=== PATIENT | male | born 1945 | race African-American/Black ===

== ENCOUNTER 2016-11-02 06:10 | Inpatient (IN) | payer MEDICARE, MEDICAID ==
[2016-11-02] VITALS (14 sets, daily range): BP systolic 134–199; BP diastolic 84–125
[~2016-11-02] VITALS: Ht 167.6 cm; Wt 81.8 kg
[~2016-11-02 06:10] MED LIST: AMLO5TAB4 PO; ASPI-1035 PO; CLON0.2T PO; COR12 PO; DOCU-138 PO; FINA5TAB11 PO; ISOS20TA57 PO; LISI-604 PO; METO25TA6 PO; NVLG73 SUBCUT; SIMV20TA2 PO; SITA100T6 PO
[2016-11-02] MEDS ORDERED: LIDOCAINE HCL 1% 20ML VIAL (Pyxis) INJ ONE (07:57)
[2016-11-02] MEDS ORDERED: IODIXANOL 320MG/ML 100 ML BOTTLE IV ONE (07:59)
[2016-11-02] MEDS ORDERED: COR12 PO (08:04)
[2016-11-02] MEDS ORDERED: CLOP75TA33 PO (08:04)
[2016-11-02] MEDS ORDERED: FENTANYL CITRATE/PF 50MCG/ML 2ML VIAL ONE (08:12)
[2016-11-02] MEDS ORDERED: MIDAZOLAM HCL 2 MG/2 ML VIAL ONE ×3 (08:12→09:31)
[2016-11-02] MEDS ORDERED: HYDROMORPHONE HCL/PF 2MG/ML (OR) ONE ×2 (08:12→09:17)
[2016-11-02] MEDS ORDERED: IOVERSOL 240MG/ML 100ML BOTTLE IV ONE (08:54)
[2016-11-02] MEDS ORDERED: ASPIRIN 325MG TABLET ONE (09:44)
[2016-11-02] MEDS ORDERED: CLOPIDOGREL 75MG TABLET ONE (09:44)
[2016-11-02] MEDS ORDERED: INSULIN ASPART SUBCUT SCH (10:00)
[2016-11-02] MEDS ORDERED: AMLODIPINE 5MG TABLET PO SCH (10:00)
[2016-11-02] MEDS ORDERED: SODIUM CHLORIDE 0.45% 1,000 ML IV ONE (10:00)
[2016-11-02] MEDS ORDERED: ACETAMINOPHEN 325MG TABLET PO PRN (10:00)
[2016-11-02] MEDS ORDERED: SIMVASTATIN PO SCH (10:00)
[2016-11-02] MEDS ORDERED: CLONIDINE 0.2MG TABLET PO PRN (10:00)
[2016-11-02] MEDS ORDERED: MEDICATION NOT ON FORMULARY EA (Sitagliptin Phosphate (Januvia) 1 TAB) PO SCH (10:00)
[2016-11-02] MEDS ORDERED: ATROPINE SULFATE 1MG/10ML SYR IV PRN (10:00)
[2016-11-02] MEDS: DOCUSATE SODIUM 100MG CAPSULE PO SCH (10:59)
[2016-11-02] MEDS: LISINOPRIL 20MG TABLET PO SCH (11:01)
[2016-11-02] MEDS: ATORVASTATIN CALCIUM 10MG TABLET PO SCH (12:18)
[2016-11-02] MEDS: ISOSORBIDE MONONITRATE 60MG TABLET SR 24HR PO SCH (12:19)
[2016-11-02] MEDS: LINAGLIPTIN 5MG TABLET PO SCH (12:19)
[2016-11-02] MEDS: INS NPH/REG HM 70-30 100 UNITS/ML 10ML VIAL (HUMULIN 70-30) SUBCUT SCH ×2 (13:11→20:14)
[2016-11-02] MEDS ORDERED: CLONIDINE 0.2MG TABLET PO SCH (13:30)
[2016-11-02] MEDS ORDERED: HEPARIN SODIUM 1,000 UNIT/1ML VIAL IV ONE (13:42)
[2016-11-02] MEDS ORDERED: LORAZEPAM 2MG/ML CPJ IV NR ×2 (13:45→14:45)
[2016-11-02] MEDS: CLONIDINE 0.2MG TABLET PO SCH ×2 (13:50→20:05)
[2016-11-02] MEDS: QUETIAPINE FUMARATE 25MG TABLET PO SCH (14:11)
[2016-11-02] MEDS: HYDRALAZINE 20MG/ML VIAL IV PRN (15:15)
[2016-11-02] MEDS ORDERED: LORAZEPAM 2MG/ML CPJ IV PRN (15:30)
[2016-11-02] MEDS ORDERED: ONDANSETRON HCL 4MG/2ML VIAL IV PRN (16:15)
[2016-11-02] MEDS ORDERED: CARVEDILOL 12.5MG TABLET PO SCH (17:00)
[2016-11-02] MEDS: CARVEDILOL 12.5MG TABLET PO SCH (18:08)
[2016-11-02] MEDS: AMLODIPINE 5MG TABLET PO SCH (21:55)
[2016-11-03] VITALS (8 sets, daily range): BP systolic 146–180; BP diastolic 88–97
[2016-11-03 06:18] LABS: BASOPHILS % 0.3 % (0.0-2.0); EOSINOPHILS % 0.5 % (0.0-5.0); HEMATOCRIT. 40.7 % (42.0-52.0); HEMOGLOBIN. 13.9 g/dL (14.0-18.0); LYMPHOCYTES % 12.7 % (20.0-50.0); MEAN CORPUSCULAR HEMOGLOBIN 31.6 pg (28.0-32.0); MEAN CORPUSCULAR HGB CONC 34.1 g/dL (31.0-37.0); MEAN CORPUSCULAR VOLUME 92.6 fL (80.0-94.0); MEAN PLATELET VOLUME 9.4 fl (7.4-10.4); MONOCYTES % 7.7 % (2.0-8.0); NEUTROPHILS % 78.8 % (40.0-76.0); PLATELET 207 x1000/uL (130-400); RED BLOOD CELL COUNT 4.39 mill/uL (4.7-6.1); RED CELL DISTRIBUTION WIDTH 14.1 % (11.6-14.6); WHITE BLOOD COUNT 13.1 x1000/uL (4.5-11.0)
[2016-11-03 07:21] LABS: CALCIUM 8.7 mg/dL (8.5-10.1)
[2016-11-03] MEDS: INS NPH/REG HM 70-30 100 UNITS/ML 10ML VIAL (HUMULIN 70-30) SUBCUT SCH (07:50)
[2016-11-03] MEDS: DOCUSATE SODIUM 100MG CAPSULE PO SCH (08:00)
[2016-11-03] MEDS: QUETIAPINE FUMARATE 25MG TABLET PO SCH (08:01)
[2016-11-03] MEDS: LINAGLIPTIN 5MG TABLET PO SCH (08:01)
[2016-11-03] MEDS: ISOSORBIDE MONONITRATE 60MG TABLET SR 24HR PO SCH (08:02)
[2016-11-03] MEDS: CARVEDILOL 12.5MG TABLET PO SCH (08:03)
[2016-11-03] MEDS: CLONIDINE 0.2MG TABLET PO SCH (08:05)
[2016-11-03] MEDS ORDERED: CLOPIDOGREL 75MG TABLET PO SCH (09:00)
[2016-11-03] MEDS ORDERED: ASPIRIN 81MG EC TABLET PO SCH (09:00)
[2016-11-03] MEDS: ATORVASTATIN CALCIUM 10MG TABLET PO SCH (09:13)
[2016-11-03] MEDS: AMLODIPINE 5MG TABLET PO SCH (09:14)
[2016-11-03] MEDS: LISINOPRIL 20MG TABLET PO SCH (09:14)
[2016-11-03] MEDS: HYDRALAZINE 20MG/ML VIAL IV PRN (09:33)
[2016-11-03] MEDS ORDERED: POTASSIUM CHLORIDE 20MEQ TABLET SR PO NR (10:30)
== END 2016-11-03 12:20 | disposition home or self-care (01) | DRG 253 ==
LOC: CCL 06:10 → 3WST 06:11
PROVIDERS: ADMIT Specialist; ATTEND Specialist
PROC: 047L341 Dilation of Left Femoral Artery with Drug-eluting Intraluminal Device, using Drug-Coated Balloon, Percutaneous Approach (ICD-10-PCS; principal; 2016-11-02)
PROC: 047K34Z Dilation of Right Femoral Artery with Drug-eluting Intraluminal Device, Percutaneous Approach (ICD-10-PCS; 2016-11-02)
PROC: 047M34Z Dilation of Right Popliteal Artery with Drug-eluting Intraluminal Device, Percutaneous Approach (ICD-10-PCS; 2016-11-02)
DX: E11.51 Type 2 diabetes mellitus with diabetic peripheral angiopathy without gangrene (principal); I70.92 Chronic total occlusion of artery of the extremities; I70.202 Unspecified atherosclerosis of native arteries of extremities, left leg; D63.8 Anemia in other chronic diseases classified elsewhere; E78.5 Hyperlipidemia, unspecified; I13.10 Hypertensive heart and chronic kidney disease without heart failure, with stage 1 through stage 4 chronic kidney disease, or unspecified chronic kidney disease; E87.6 Hypokalemia; I11.9 Hypertensive heart disease without heart failure; I25.10 Atherosclerotic heart disease of native coronary artery without angina pectoris; E11.22 Type 2 diabetes mellitus with diabetic chronic kidney disease; N18.9 Chronic kidney disease, unspecified; N28.9 Disorder of kidney and ureter, unspecified; Z79.4 Long term (current) use of insulin; Z95.1 Presence of aortocoronary bypass graft; Z98.890 Other specified postprocedural states
CPT/HCPCS: 36415; 37226; 75710; 80048; 82962; 85025; 85347; C1714; C1725; C1760; C1769; C1887; C1893; C1894; J0360; J1170; J1644; J1815; J2060; J2250; J2405; J3010; J3490; Q9967

== ENCOUNTER 2017-03-08 14:28 | Emergency (ER) | payer MEDICARE, MEDICAID ==
[~2017-03-08] VITALS: Ht 167.6 cm; Wt 83.0 kg
[~2017-03-08 14:28] MED LIST changes: -ASPI-1035 PO; +ASPI-1159 PO; +CLOP75TA33 PO
[2017-03-08 15:30] LABS: BASOPHILS % 0.6 % (0.0-2.0); EOSINOPHILS % 1.4 % (0.0-5.0); HEMATOCRIT. 35.5 % (42.0-52.0); HEMOGLOBIN. 12.2 g/dL (14.0-18.0); LYMPHOCYTES % 22.7 % (20.0-50.0); MEAN CORPUSCULAR HEMOGLOBIN 31.8 pg (28.0-32.0); MEAN CORPUSCULAR VOLUME 92.8 fL (80.0-94.0); MEAN PLATELET VOLUME 8.8 fl (7.4-10.4); MONOCYTES % 6.8 % (2.0-8.0); NEUTROPHILS % 68.5 % (40.0-76.0); PLATELET 191 x1000/uL (130-400); RED BLOOD CELL COUNT 3.83 mill/uL (4.7-6.1); RED CELL DISTRIBUTION WIDTH 14.4 % (11.6-14.6)
[2017-03-08 15:38] LABS: PROTHROMBIN TIME 10.7 sec
[2017-03-08 15:43] LABS: CARBON DIOXIDE 29 mEq/L (21-32); CHLORIDE 107 mEq/L (98-107)
[2017-03-08 15:47] LABS: TROPONIN I < 0.02 ng/mL (0.00-0.04)
[2017-03-08 16:55] LABS: CLARITY URINE CLEAR (CLEAR); COLOR URINE YELLOW (YELLOW); GLUCOSE URINE NEGATIVE (NEGATIVE); KETONES URINE NEGATIVE (NEGATIVE); LEUKOCYTE ESTERASE URINE NEGATIVE (NEGATIVE); NITRITE URINE NEGATIVE (NEGATIVE); OCCULT BLOOD URINE 1+ (NEGATIVE); PROTEIN URINE 3+ (NEGATIVE); SPECIFIC GRAVITY URINE 1.021 (1.005-1.030); UROBILINOGEN URINE 0.2 E.U./dL (0.2-1.0)
[2017-03-08] MEDS ORDERED: SODIUM CHLORIDE 0.9% 500 ML IV NR (17:05)
[2017-03-08 18:39] VITALS: BP 161/85
== END 2017-03-08 18:45 | disposition home or self-care (01) ==
LOC: ER 15:45
DX: E11.649 Type 2 diabetes mellitus with hypoglycemia without coma (principal); R31.29 Other microscopic hematuria; F41.9 Anxiety disorder, unspecified; I10 Essential (primary) hypertension; Z87.891 Personal history of nicotine dependence; E78.00 Pure hypercholesterolemia, unspecified; Z79.82 Long term (current) use of aspirin; Z79.4 Long term (current) use of insulin
CPT/HCPCS: 36415; 71010; 80053; 81001; 82962; 83880; 84484; 85025; 85610; 93005; 99285

== ENCOUNTER 2017-04-30 00:09 | Inpatient (IN) | payer MEDICARE, MEDICAID ==
[~2017-04-30] VITALS: Ht 167.6 cm; Wt 77.3 kg
[~2017-04-30 00:09] MED LIST changes: +SITA100T11 PO; -SITA100T6 PO
[2017-04-30] MEDS ORDERED: ONDANSETRON HCL 4MG/2ML VIAL IV ONE (02:15)
[2017-04-30] MEDS ORDERED: MORPHINE SULFATE 4 MG/ML CPJ (NOT FOR IM USE) IV ONE (02:15)
[2017-04-30 02:34] LABS: BASOPHILS % 0.9 % (0.0-2.0); HEMATOCRIT. 31.9 % (42.0-52.0); HEMOGLOBIN. 10.6 g/dL (14.0-18.0); LYMPHOCYTES % 20.9 % (20.0-50.0); MEAN CORPUSCULAR HEMOGLOBIN 31.4 pg (28.0-32.0); MEAN CORPUSCULAR VOLUME 94.2 fL (80.0-94.0); MEAN PLATELET VOLUME 9.6 fl (7.4-10.4); MONOCYTES % 6.2 % (2.0-8.0); PLATELET 209 x1000/uL (130-400); RED BLOOD CELL COUNT 3.38 mill/uL (4.7-6.1); RED CELL DISTRIBUTION WIDTH 14.6 % (11.6-14.6)
[2017-04-30 02:44] LABS: CARBON DIOXIDE 26 mEq/L (21-32); CHLORIDE 108 mEq/L (98-107); TROPONIN I < 0.02 ng/mL (0.00-0.04)
[2017-04-30] MEDS ORDERED: LORAZEPAM 2MG/ML CPJ IV ONE (05:00)
[2017-04-30 09:00] VITALS: BP 158/94
[2017-04-30] MEDS ORDERED: LISI-604 PO (10:24)
[2017-04-30] MEDS ORDERED: GLIP5TAB12 PO (10:24)
[2017-04-30] MEDS ORDERED: CARV25TA47 PO (10:24)
[2017-04-30] MEDS ORDERED: TRAM50TA3 PO (10:24)
[2017-04-30] MEDS ORDERED: SIMV20TA6 PO (10:24)
[2017-04-30] MEDS ORDERED: MINO2.5T19 PO (10:24)
[2017-04-30] MEDS ORDERED: ISOS20TA8 PO (10:24)
[2017-04-30] MEDS ORDERED: LORA1TAB PO (10:24)
[2017-04-30] MEDS ORDERED: ACETAMINOPHEN 325MG TABLET PO PRN (11:00)
[2017-04-30] MEDS ORDERED: FERROUS SULFATE 325MG TABLET PO SCH (11:00)
[2017-04-30] MEDS ORDERED: CLONIDINE 0.1MG TABLET PO PRN (11:00)
[2017-04-30] MEDS ORDERED: HYDROCODONE/ACETAMINOPHEN 5/325MG TABLET PO PRN (11:00)
[2017-04-30] MEDS ORDERED: ENOXAPARIN 40MG/0.4ML SYR SUBCUT SCH (11:00)
[2017-04-30] MEDS ORDERED: MORPHINE SULFATE 2 MG/ML CPJ (NOT FOR IM USE) IV PRN (11:00)
[2017-04-30] MEDS: LORAZEPAM 2MG/ML CPJ IV PRN ×3 (11:03→20:24)
[2017-04-30] MEDS ORDERED: TRAMADOL 50MG TABLET PO SCH (11:45)
[2017-04-30] MEDS ORDERED: CLONIDINE 0.2MG TABLET PO PRN (11:45)
[2017-04-30] MEDS ORDERED: DEXTROSE 50% WATER 50ML SYRINGE IV PRN (12:15)
[2017-04-30] MEDS ORDERED: GLIPIZIDE 5MG TABLET PO SCH (12:30)
[2017-04-30] MEDS ORDERED: MINOXIDIL 2.5MG TABLET PO SCH ×2 (12:30→16:44)
[2017-04-30] MEDS ORDERED: CLOPIDOGREL 75MG TABLET PO SCH (12:30)
[2017-04-30] MEDS ORDERED: ASPIRIN 81MG EC TABLET PO SCH (12:30)
[2017-04-30] MEDS ORDERED: ISOSORBIDE MONONITRATE 60MG TABLET SR 24HR PO SCH (12:30)
[2017-04-30] MEDS: BLOOD SUGAR DIAGNOSTIC STRIP TEST SCH ×3 (13:01→20:15)
[2017-04-30] MEDS: INSULIN LISPRO 100 UNITS/ML SUBCUT SCH ×3 (13:11→20:21)
[2017-04-30] MEDS: DOCUSATE SODIUM 100MG CAPSULE PO SCH ×2 (13:11→16:46)
[2017-04-30] MEDS: FUROSEMIDE 40MG/4ML VIAL IVP SCH ×2 (13:13→16:48)
[2017-04-30] MEDS: CARVEDILOL 25MG TABLET PO SCH ×2 (13:23→20:15)
[2017-04-30] MEDS ORDERED: HYDRALAZINE 20MG/ML VIAL IV PRN (16:15)
[2017-04-30 16:45] VITALS: BP 214/115
[2017-04-30] MEDS ORDERED: LORAZEPAM 1MG TABLET PO SCH (17:00)
[2017-04-30 17:10] LABS: CREATINE KINASE MB FRACTION 13.4 ng/mL (0.5-3.6); TROPONIN I 0.03 ng/mL (0.00-0.04)
[2017-04-30 17:45] VITALS: BP 159/104
[2017-04-30 20:00] VITALS: BP 203/115
[2017-04-30 20:46] LABS: CLARITY URINE CLEAR (CLEAR); COLOR URINE YELLOW (YELLOW); GLUCOSE URINE NEGATIVE (NEGATIVE); KETONES URINE NEGATIVE (NEGATIVE); LEUKOCYTE ESTERASE URINE NEGATIVE (NEGATIVE); NITRITE URINE NEGATIVE (NEGATIVE); OCCULT BLOOD URINE 1+ (NEGATIVE); PROTEIN URINE 2+ (NEGATIVE); SPECIFIC GRAVITY URINE 1.008 (1.005-1.030); UROBILINOGEN URINE 0.2 E.U./dL (0.2-1.0)
[2017-04-30] MEDS ORDERED: PNEUMOCOCCAL 23-VAL P-SAC VAC 0.5 ML IM ONE (21:00)
[2017-04-30] MEDS ORDERED: LISINOPRIL 20MG TABLET PO SCH (21:00)
[2017-04-30] MEDS ORDERED: ZOLPIDEM TARTRATE 5MG TABLET PO PRN (21:00)
[2017-04-30 21:05] LABS: *AMPHETAMINES SCREEN URINE NEGATIVE (NEGATIVE); *BARBITURATES SCREEN URINE NEGATIVE (NEGATIVE); *BENZODIAZEPINES SCREEN URINE NEGATIVE (NEGATIVE); *COCAINE SCREEN URINE NEGATIVE (NEGATIVE); CANNABINOID URINE SCREEN PRESUMTIVE POSITIVE (NEGATIVE); METHADONE URINE SCREEN NEGATIVE (NEGATIVE); OPIATES URINE SCREEN PRESUMTIVE POSITIVE (NEGATIVE); PHENCYCLIDINE URINE SCREEN NEGATIVE (NEGATIVE)
[2017-04-30 21:07] VITALS: BP 157/83
[2017-05-01] MEDS ORDERED: FOLIC ACID 1MG TABLET PO SCH (09:00)
== END 2017-04-30 23:15 | disposition left against medical advice (07) | DRG 291 ==
LOC: ER 01:09 → 7WST 04:44 → EDBEDREQ 04:51 → ENRESERV 07:43
PROVIDERS: ADMIT Internal Medicine Nephrology; ATTEND Internal Medicine Nephrology
DX: I13.0 Hypertensive heart and chronic kidney disease with heart failure and stage 1 through stage 4 chronic kidney disease, or unspecified chronic kidney disease (principal); I50.41 Acute combined systolic (congestive) and diastolic (congestive) heart failure; E11.22 Type 2 diabetes mellitus with diabetic chronic kidney disease; E11.51 Type 2 diabetes mellitus with diabetic peripheral angiopathy without gangrene; E44.1 Mild protein-calorie malnutrition; E66.9 Obesity, unspecified; N18.9 Chronic kidney disease, unspecified; N40.0 Benign prostatic hyperplasia without lower urinary tract symptoms; D63.8 Anemia in other chronic diseases classified elsewhere; E78.00 Pure hypercholesterolemia, unspecified; E78.5 Hyperlipidemia, unspecified; F12.90 Cannabis use, unspecified, uncomplicated; I25.10 Atherosclerotic heart disease of native coronary artery without angina pectoris; I25.2 Old myocardial infarction; Z79.02 Long term (current) use of antithrombotics/antiplatelets; Z79.4 Long term (current) use of insulin; Z79.82 Long term (current) use of aspirin; Z79.899 Other long term (current) drug therapy; Z87.891 Personal history of nicotine dependence; Z95.1 Presence of aortocoronary bypass graft; Z95.5 Presence of coronary angioplasty implant and graft; Z68.27 Body mass index [BMI] 27.0-27.9, adult
CPT/HCPCS: 36415; 71010; 80053; 80305; 81001; 82550; 82553; 82962; 83880; 84484; 85025; 85379; 93005; 93970; 96374; 96375; 99285; J1650; J1815; J1940; J2060; J2270; J2405

== ENCOUNTER 2017-07-11 06:10 | Day surgery (SDC) | payer MEDICARE, MEDICAID ==
[~2017-07-11 06:10] MED LIST changes: -AMLO5TAB4 PO; +CARV25TA47 PO; -COR12 PO; -FINA5TAB11 PO; +GLIP5TAB12 PO; -ISOS20TA57 PO; +ISOS20TA8 PO; +LORA1TAB PO; -METO25TA6 PO; +MINO2.5T19 PO; -SIMV20TA2 PO; +SIMV20TA6 PO; +TRAM50TA3 PO
[2017-07-11] MEDS ORDERED: LIDOCAINE HCL 1% 20ML VIAL (Pyxis) INJ ONE (07:47)
[2017-07-11] MEDS ORDERED: QUET50TA PO (07:53)
[2017-07-11] MEDS ORDERED: FURO-152 PO (07:53)
[2017-07-11] MEDS ORDERED: POTA10TA11 PO (07:53)
[2017-07-11] MEDS ORDERED: IODIXANOL 320MG/ML 200ML BOTTLE ONE (09:04)
[2017-07-11] MEDS ORDERED: MIDAZOLAM HCL 2 MG/2 ML VIAL ONE ×2 (09:18→09:37)
[2017-07-11] MEDS ORDERED: FENTANYL CITRATE/PF 50MCG/ML 2ML VIAL ONE ×2 (09:18→09:37)
[2017-07-11] MEDS ORDERED: ONDANSETRON HCL 4MG/2ML VIAL IV PRN (10:15)
[2017-07-11] MEDS ORDERED: ATROPINE SULFATE 1MG/10ML SYR IV PRN (10:15)
[2017-07-11] MEDS ORDERED: CLONIDINE 0.2MG TABLET PO PRN (10:15)
[2017-07-11] MEDS ORDERED: DOCUSATE SODIUM 100MG CAPSULE PO SCH (17:00)
[2017-07-11] MEDS ORDERED: CARVEDILOL 25MG TABLET PO SCH (17:00)
[2017-07-11] MEDS ORDERED: TRAMADOL 50MG TABLET PO SCH (17:00)
[2017-07-11] MEDS ORDERED: LISINOPRIL 20MG TABLET PO SCH (17:00)
[2017-07-11] MEDS ORDERED: LORAZEPAM 1MG TABLET PO SCH (17:00)
[2017-07-12] MEDS ORDERED: CLOPIDOGREL 75MG TABLET PO SCH (09:00)
[2017-07-12] MEDS ORDERED: GLIPIZIDE 5MG TABLET PO SCH (09:00)
[2017-07-12] MEDS ORDERED: FUROSEMIDE 20MG TABLET PO SCH (09:00)
[2017-07-12] MEDS ORDERED: MINOXIDIL 2.5MG TABLET PO SCH (09:00)
[2017-07-12] MEDS ORDERED: ISOSORBIDE DINITRATE 20MG TABLET PO SCH (09:00)
[2017-07-12] MEDS ORDERED: ASPIRIN 81MG EC TABLET PO SCH (09:00)
== END 2017-07-11 14:10 | disposition home or self-care (01) ==
LOC: CCL 06:10
PROVIDERS: ATTEND Specialist
DX: R07.89 Other chest pain (principal); I10 Essential (primary) hypertension; E11.9 Type 2 diabetes mellitus without complications; Z88.8 Allergy status to other drugs, medicaments and biological substances; Z79.899 Other long term (current) drug therapy; Z79.84 Long term (current) use of oral hypoglycemic drugs; Z79.01 Long term (current) use of anticoagulants; Z95.5 Presence of coronary angioplasty implant and graft; Z95.1 Presence of aortocoronary bypass graft
CPT/HCPCS: 82962; 93459; 99152; 99153; C1760; C1769; C1887; C1893; J1644; J2250; J3010; J3490; Q9967

== ENCOUNTER → 2018-03-06 | Outpatient (CLI) | payer MEDICARE, MEDICAID ==
[~2018-03-06] MED LIST changes: +FURO-152 PO; +POTA10TA11 PO; +QUET50TA PO
== END | disposition home or self-care (01) ==
LOC: RAD 08:28
PROVIDERS: ATTEND Specialist
DX: M17.0 Bilateral primary osteoarthritis of knee (principal); Z87.828 Personal history of other (healed) physical injury and trauma
CPT/HCPCS: 73562

== ENCOUNTER 2019-10-08 08:21 | Inpatient (IN) | payer MEDICARE, MEDICAID ==
[~2019-10-08] VITALS: Ht 167.6 cm; Wt 90.7 kg
[2019-10-08] VITALS (14 sets, daily range): BP systolic 137–164; BP diastolic 69–92
[~2019-10-08 08:21] MED LIST changes: -ASPI-1159 PO; +ASPI-1497 PO; +SIMV-43 PO; -SIMV20TA6 PO
[2019-10-08] MEDS ORDERED: ASPI-1497 PO (09:33)
[2019-10-08] MEDS ORDERED: ISOS30TA6 PO (09:33)
[2019-10-08] MEDS ORDERED: CLOP75TA4 PO (09:33)
[2019-10-08] MEDS ORDERED: FURO-152 PO (09:33)
[2019-10-08] MEDS ORDERED: CLON0.1T PO (09:33)
[2019-10-08] MEDS ORDERED: AMLO10TA80 PO (09:33)
[2019-10-08] MEDS ORDERED: PREG75CA PO (09:33)
[2019-10-08] MEDS ORDERED: NITROGLYCERIN 50MCG/ML 10ML VIAL (CATH LAB) IV ONE (10:20)
[2019-10-08] MEDS ORDERED: HEPARIN SODIUM 1,000 UNIT/1ML VIAL IV ONE ×3 (10:20→11:29)
[2019-10-08] MEDS ORDERED: NICARDIPINE 100MCG/ML 10ML VIAL (CATH LAB) IV ONE (10:20)
[2019-10-08] MEDS ORDERED: LIDOCAINE HCL 1% 20ML VIAL (Pyxis) INJ ONE (10:37)
[2019-10-08] MEDS ORDERED: IODIXANOL 320MG/ML 100 ML BOTTLE IV ONE (10:38)
[2019-10-08] MEDS ORDERED: FENTANYL CITRATE/PF 50MCG/ML 2ML VIAL ONE (10:38)
[2019-10-08] MEDS ORDERED: MIDAZOLAM HCL 2 MG/2 ML VIAL ONE (10:51)
[2019-10-08] MEDS ORDERED: IOHEXOL-300 100 ML BOTTLE ONE (11:29)
[2019-10-08] MEDS ORDERED: ASPIRIN 325MG EC TABLET PO ONE (11:57)
[2019-10-08] MEDS ORDERED: CLOPIDOGREL 75MG TABLET ONE (11:57)
[2019-10-08] MEDS ORDERED: ONDANSETRON HCL 4MG/2ML INJ IV PRN (12:00)
[2019-10-08] MEDS ORDERED: ACETAMINOPHEN 325MG TABLET PO PRN (12:00)
[2019-10-08] MEDS ORDERED: ATROPINE SULFATE 1MG/10ML SYR IV PRN (12:00)
[2019-10-08] MEDS ORDERED: SODIUM CHLORIDE 0.45% 1,000 ML IV SCH (12:15)
[2019-10-08] MEDS ORDERED: DEXTROSE 50% WATER 50ML SYRINGE IV PRN (15:15)
[2019-10-08] MEDS: BLOOD SUGAR DIAGNOSTIC STRIP TEST SCH ×2 (16:50→19:38)
[2019-10-08] MEDS: INSULIN LISPRO 100 UNITS/ML SUBCUT SCH ×2 (17:01→21:04)
[2019-10-08] MEDS ORDERED: INFLUENZA VIRUS VACCINE(AFLURIA) 0.5ML SYR IM ONE (17:30)
[2019-10-08] MEDS ORDERED: ZOLPIDEM TARTRATE 5MG TABLET PO PRN (21:00)
[2019-10-09] VITALS (7 sets, daily range): BP systolic 121–166; BP diastolic 57–89
[2019-10-09] MEDS: BLOOD SUGAR DIAGNOSTIC STRIP TEST SCH (06:34)
[2019-10-09] MEDS ORDERED: GLIPIZIDE 5MG TABLET PO SCH (06:50)
[2019-10-09 06:52] LABS: EOSINOPHILS % 2.6 % (0.0-5.0); HEMATOCRIT. 35.7 % (42.0-52.0); LYMPHOCYTES % 21.9 % (20.0-50.0); MEAN CORPUSCULAR HEMOGLOBIN 31.2 pg (28.0-32.0); MEAN CORPUSCULAR VOLUME 92.8 fL (80.0-94.0); MEAN PLATELET VOLUME 10.7 fl (7.4-10.4); MONOCYTES % 7.8 % (2.0-8.0); NEUTROPHILS % 66.7 % (40.0-76.0); PLATELET 228 x1000/uL (130-400); RED BLOOD CELL COUNT 3.85 mill/uL (4.7-6.1); RED CELL DISTRIBUTION WIDTH 15.4 % (11.6-14.6)
[2019-10-09] MEDS: INSULIN LISPRO 100 UNITS/ML SUBCUT SCH (07:38)
[2019-10-09] MEDS ORDERED: ISOSORBIDE MONONITRATE 30MG TABLET SR 24HR PO SCH (09:00)
[2019-10-09] MEDS ORDERED: FUROSEMIDE 20MG TABLET PO SCH (09:00)
[2019-10-09] MEDS ORDERED: AMLODIPINE 10MG TABLET PO SCH (09:00)
[2019-10-09] MEDS ORDERED: PREGABALIN 75MG CAPSULE PO SCH (09:00)
[2019-10-09] MEDS ORDERED: ASPIRIN 325MG TABLET PO SCH (09:00)
[2019-10-09] MEDS ORDERED: CLOPIDOGREL 75MG TABLET PO SCH (09:00)
[2019-10-09] MEDS ORDERED: CLONIDINE 0.1MG TABLET PO SCH (09:00)
== END 2019-10-09 11:25 | disposition home health service (06) | DRG 247 ==
LOC: CCL 08:21 → 3WST 08:22
PROVIDERS: ADMIT Specialist; ATTEND Specialist
PROC: 027034Z Dilation of Coronary Artery, One Artery with Drug-eluting Intraluminal Device, Percutaneous Approach (ICD-10-PCS; principal; 2019-10-08)
PROC: 4A023N7 Measurement of Cardiac Sampling and Pressure, Left Heart, Percutaneous Approach (ICD-10-PCS; 2019-10-08)
PROC: B211YZZ Fluoroscopy of Multiple Coronary Arteries using Other Contrast (ICD-10-PCS; 2019-10-08)
PROC: B218YZZ Fluoroscopy of Left Internal Mammary Bypass Graft using Other Contrast (ICD-10-PCS; 2019-10-08)
DX: I25.110 Atherosclerotic heart disease of native coronary artery with unstable angina pectoris (principal); E88.81 Metabolic syndrome and other insulin resistance; E78.5 Hyperlipidemia, unspecified; E11.22 Type 2 diabetes mellitus with diabetic chronic kidney disease; N18.9 Chronic kidney disease, unspecified; I49.3 Ventricular premature depolarization; I13.10 Hypertensive heart and chronic kidney disease without heart failure, with stage 1 through stage 4 chronic kidney disease, or unspecified chronic kidney disease; E11.51 Type 2 diabetes mellitus with diabetic peripheral angiopathy without gangrene; N40.0 Benign prostatic hyperplasia without lower urinary tract symptoms; Z95.1 Presence of aortocoronary bypass graft; Z95.5 Presence of coronary angioplasty implant and graft; Z95.820 Peripheral vascular angioplasty status with implants and grafts; Z82.3 Family history of stroke; Z79.4 Long term (current) use of insulin; I25.2 Old myocardial infarction; Z82.49 Family history of ischemic heart disease and other diseases of the circulatory system; Z79.899 Other long term (current) drug therapy; Z79.02 Long term (current) use of antithrombotics/antiplatelets; Z79.84 Long term (current) use of oral hypoglycemic drugs
CPT/HCPCS: 36415; 80048; 82962; 85025; 85347; 90686; 92928; 93005; 93459; C1760; C1769; C1874; C1887; C1893; J1644; J1815; J2250; J3010; J3490; Q9967

== ENCOUNTER 2022-10-07 13:07 | Inpatient (IN) | payer MEDICARE, MEDICAID ==
[~2022-10-07] VITALS: Ht 167.6 cm; Wt 83.0 kg
[~2022-10-07 13:07] MED LIST changes: +AMLO10TA80 PO; +CLON0.1T PO; -CLON0.2T PO; +CLOP-31 PO; -CLOP75TA33 PO; -DOCU-138 PO; -ISOS20TA8 PO; +ISOS30TA91 PO; -LISI-604 PO; -LORA1TAB PO; -MINO2.5T19 PO; -POTA10TA11 PO; +PREG75CA PO; -QUET50TA PO; -SITA100T11 PO; -TRAM50TA3 PO
[2022-10-07] MEDS ORDERED: MORPHINE SULFATE 4 MG/ML CPJ (NOT FOR IM USE) IV STA (13:33)
[2022-10-07] MEDS ORDERED: ONDANSETRON HCL 4MG/2ML INJ IV STA (13:33)
[2022-10-07 14:04] LABS: BASOPHILS % 1.1 % (0.0-2.0); EOSINOPHILS % 1.1 % (0.0-5.0); HEMATOCRIT. 28.2 % (42.0-52.0); HEMOGLOBIN. 9.1 g/dL (14.0-18.0); LYMPHOCYTES % 8.5 % (20.0-50.0); MEAN CORPUSCULAR HEMOGLOBIN 29.9 pg (28.0-32.0); MEAN CORPUSCULAR VOLUME 92.4 fL (80.0-94.0); MEAN PLATELET VOLUME 10.5 fl (7.4-10.4); MONOCYTES % 4.5 % (2.0-8.0); NEUTROPHILS % 84.8 % (40.0-76.0); PLATELET 176 x1000/uL (130-400); RED BLOOD CELL COUNT 3.05 mill/uL (4.7-6.1); RED CELL DISTRIBUTION WIDTH 16.9 % (11.6-14.6)
[2022-10-07 14:19] LABS: CHLORIDE 116 mEq/L (98-107)
[2022-10-07] MEDS ORDERED: ACETAMINOPHEN 325MG TABLET PO PRN ×2 (17:45)
[2022-10-07] MEDS ORDERED: GUAIFENESIN 200MG/10ML SUGAR FREE UDC PO PRN (17:45)
[2022-10-07] MEDS ORDERED: ONDANSETRON HCL 4MG/2ML INJ IV PRN (17:45)
[2022-10-07] MEDS ORDERED: IPRATROPIUM/ALBUTEROL 0.5-3(2.5)MG/3ML NEB HHN PRN (17:45)
[2022-10-07] MEDS ORDERED: CEFTRIAXONE 1 G PREMIX 50 ML IV NR (17:45)
[2022-10-07] MEDS ORDERED: FUROSEMIDE 40MG TABLET PO NR (18:30)
[2022-10-07] MEDS ORDERED: ENOXAPARIN 30MG/0.3ML SYR SUBCUT ONE (19:00)
[2022-10-07] MEDS: ATORVASTATIN CALCIUM 20MG TABLET PO SCH (21:00)
[2022-10-07 21:38] LABS: CLARITY URINE CLEAR (CLEAR); COLOR URINE ORANGE (YELLOW); KETONES URINE NEGATIVE (NEGATIVE); LEUKOCYTE ESTERASE URINE TRACE (NEGATIVE); NITRITE URINE NEGATIVE (NEGATIVE); OCCULT BLOOD URINE 3+ (NEGATIVE); PH URINE 5.5 (4.5-8.0); PROTEIN URINE 3+ (NEGATIVE); SPECIFIC GRAVITY URINE 1.011 (1.005-1.030); UROBILINOGEN URINE 0.2 E.U./dL (0.2-1.0)
[2022-10-07] MEDS: LOSARTAN POTASSIUM 100 MG TABLET PO SCH (21:58)
[2022-10-07] MEDS: PREGABALIN 75MG CAPSULE PO SCH (21:58)
[2022-10-07] MEDS: CARVEDILOL 12.5MG TABLET PO SCH (21:58)
[2022-10-07] MEDS: FAMOTIDINE 20MG TABLET PO SCH (21:59)
[2022-10-07 22:05] LABS: *AMPHETAMINES SCREEN URINE NEGATIVE (NEGATIVE); *BARBITURATES SCREEN URINE NEGATIVE (NEGATIVE); *BENZODIAZEPINES SCREEN URINE PRESUMTIVE POSITIVE (NEGATIVE); *COCAINE SCREEN URINE NEGATIVE (NEGATIVE); CANNABINOID URINE SCREEN PRESUMTIVE POSITIVE (NEGATIVE); METHADONE URINE SCREEN NEGATIVE (NEGATIVE); OPIATES URINE SCREEN PRESUMTIVE POSITIVE (NEGATIVE); PHENCYCLIDINE URINE SCREEN NEGATIVE (NEGATIVE)
[2022-10-08] VITALS (7 sets, daily range): BP systolic 142–161; BP diastolic 74–91
[2022-10-08] MEDS ORDERED: OXAZ30CA PO (06:57)
[2022-10-08 08:10] LABS: BASOPHILS % 1.1 % (0.0-2.0); EOSINOPHILS % 0.5 % (0.0-5.0); HEMATOCRIT. 26.1 % (42.0-52.0); HEMOGLOBIN. 8.7 g/dL (14.0-18.0); LYMPHOCYTES % 10.4 % (20.0-50.0); MEAN CORPUSCULAR HEMOGLOBIN 30.7 pg (28.0-32.0); MEAN CORPUSCULAR VOLUME 91.5 fL (80.0-94.0); MEAN PLATELET VOLUME 10.5 fl (7.4-10.4); MONOCYTES % 6.3 % (2.0-8.0); NEUTROPHILS % 81.7 % (40.0-76.0); PLATELET 169 x1000/uL (130-400); RED BLOOD CELL COUNT 2.85 mill/uL (4.7-6.1); RED CELL DISTRIBUTION WIDTH 16.9 % (11.6-14.6)
[2022-10-08 08:41] LABS: CHLORIDE 116 mEq/L (98-107)
[2022-10-08] MEDS: CLOPIDOGREL 75MG TABLET PO SCH (08:54)
[2022-10-08] MEDS: ASPIRIN 81MG EC TABLET PO SCH (08:55)
[2022-10-08] MEDS: FERROUS SULFATE 325MG TABLET PO SCH (08:55)
[2022-10-08] MEDS: CHOLECALCIFEROL (D3) 1000 UNIT TABLET PO SCH (08:55)
[2022-10-08] MEDS: CARVEDILOL 12.5MG TABLET PO SCH ×2 (08:55→21:32)
[2022-10-08 08:56] LABS: FERRITIN 74 ng/mL (22-322)
[2022-10-08] MEDS: ENOXAPARIN 30MG/0.3ML SYR SUBCUT SCH (08:56)
[2022-10-08 09:02] LABS: HDL CHOLESTEROL 45 mg/dL (40-59); LDL CHOLESTEROL 35 mg/dL (5-100); PHOSPHORUS 6.1 mg/dL (2.5-4.9); TOTAL IRON BINDING CAPACITY 225 ug/dL (250-450)
[2022-10-08 09:05] LABS: VITAMIN B12 SERUM 859 pg/mL (211-911)
[2022-10-08 09:07] LABS: HEPATITIS B SURFACE ANTIGEN NEGATIVE
[2022-10-08] MEDS: CLONIDINE 0.1MG TABLET PO PRN ×2 (09:36→17:41)
[2022-10-08] MEDS ORDERED: DOCUSATE SODIUM 250MG CAPSULE PO PRN (11:00)
[2022-10-08] MEDS: CALCIUM ACETATE 667MG CAPSULE PO SCH ×2 (12:48→17:30)
[2022-10-08] MEDS: FOLIC ACID/VITAMIN B COMP W-C TABLET PO SCH (12:48)
[2022-10-08] MEDS: BUDESONIDE 0.5MG/2ML NEB HHN SCH ×2 (15:36→21:10)
[2022-10-08] MEDS ORDERED: DEXTROSE 50% WATER 50ML SYRINGE IV PRN (17:00)
[2022-10-08] MEDS: INSULIN LISPRO 100 UNITS/ML SUBCUT SCH ×2 (17:31→21:33)
[2022-10-08] MEDS ORDERED: PNEUMOCOCCAL 23-VAL P-SAC VAC 0.5 ML IM ONE (21:00)
[2022-10-08] MEDS: ATORVASTATIN CALCIUM 20MG TABLET PO SCH (21:32)
[2022-10-08] MEDS: PREGABALIN 75MG CAPSULE PO SCH (21:32)
[2022-10-08] MEDS: FAMOTIDINE 20MG TABLET PO SCH (21:34)
[2022-10-08] MEDS: BLOOD SUGAR DIAGNOSTIC STRIP TEST SCH (21:34)
[2022-10-08] MEDS: LOSARTAN POTASSIUM 100 MG TABLET PO SCH (21:38)
[2022-10-08] MEDS: METRONIDAZOLE 500MG TABLET PO SCH (21:38)
[2022-10-08] MEDS: CEFTRIAXONE 1,000 MG in DEXTROSE 5% WATER 50 ML IV SCH (22:26)
[2022-10-09] VITALS: BP 132/72
[2022-10-09 04:00] VITALS: BP 137/76
[2022-10-09] MEDS: BLOOD SUGAR DIAGNOSTIC STRIP TEST SCH ×4 (06:13→21:59)
[2022-10-09] MEDS: INSULIN LISPRO 100 UNITS/ML SUBCUT SCH ×4 (06:13→21:00)
[2022-10-09 06:22] LABS: INR 1.1; PROTHROMBIN TIME 11.4 sec (9.6-11.0)
[2022-10-09 06:25] LABS: BASOPHILS % 1.1 % (0.0-2.0); EOSINOPHILS % 1.4 % (0.0-5.0); HEMATOCRIT. 24.8 % (42.0-52.0); LYMPHOCYTES % 13.7 % (20.0-50.0); MEAN CORPUSCULAR HEMOGLOBIN 29.9 pg (28.0-32.0); MEAN CORPUSCULAR VOLUME 92.9 fL (80.0-94.0); MEAN PLATELET VOLUME 10.3 fl (7.4-10.4); MONOCYTES % 7.2 % (2.0-8.0); NEUTROPHILS % 76.6 % (40.0-76.0); PLATELET 162 x1000/uL (130-400); RED BLOOD CELL COUNT 2.67 mill/uL (4.7-6.1); RED CELL DISTRIBUTION WIDTH 17.3 % (11.6-14.6)
[2022-10-09 07:09] LABS: *CREATININE RANDOM URINE 58.7 mg/dL (Not Estab.); MICROALBUMIN RANDOM URINE 1987.4 ug/mL (Not Estab.)
[2022-10-09 08:00] VITALS: BP 160/90
[2022-10-09] MEDS: CALCIUM ACETATE 667MG CAPSULE PO SCH ×3 (08:58→17:58)
[2022-10-09] MEDS: ASPIRIN 81MG EC TABLET PO SCH (08:58)
[2022-10-09] MEDS: CHOLECALCIFEROL (D3) 1000 UNIT TABLET PO SCH (08:58)
[2022-10-09] MEDS: CARVEDILOL 12.5MG TABLET PO SCH ×2 (08:59→21:58)
[2022-10-09] MEDS: FERROUS SULFATE 325MG TABLET PO SCH (08:59)
[2022-10-09] MEDS: CLOPIDOGREL 75MG TABLET PO SCH (08:59)
[2022-10-09] MEDS: METRONIDAZOLE 500MG TABLET PO SCH ×2 (08:59→21:58)
[2022-10-09] MEDS ORDERED: METRONIDAZOLE 50MG/ML 1ML ORAL SYR(NEO) PO SCH (09:00)
[2022-10-09] MEDS: ENOXAPARIN 30MG/0.3ML SYR SUBCUT SCH (09:00)
[2022-10-09] MEDS: FOLIC ACID/VITAMIN B COMP W-C TABLET PO SCH (09:06)
[2022-10-09 09:40] LABS: PHOSPHORUS 5.5 mg/dL (2.5-4.9)
[2022-10-09] MEDS ORDERED: POLYETHYLENE GLYCOL 3350 (17GM) 1 DOSE PACK PO PRN (09:45)
[2022-10-09] MEDS: BUDESONIDE 0.5MG/2ML NEB HHN SCH ×2 (10:16→20:12)
[2022-10-09] MEDS: SENNOSIDES/DOCUSATE SOD 8.6/50MG TABLET PO SCH ×2 (11:09→17:58)
[2022-10-09 12:00] VITALS: BP 188/90
[2022-10-09] MEDS: CLONIDINE 0.1MG TABLET PO PRN ×2 (12:40→18:53)
[2022-10-09 16:00] VITALS: BP 192/95
[2022-10-09] MEDS: HYDRALAZINE 20MG/ML VIAL IV PRN (16:42)
[2022-10-09] MEDS: AMLODIPINE 2.5MG TABLET PO SCH (16:43)
[2022-10-09 20:00] VITALS: BP 132/92
[2022-10-09] MEDS: LOSARTAN POTASSIUM 100 MG TABLET PO SCH (21:58)
[2022-10-09] MEDS: ATORVASTATIN CALCIUM 20MG TABLET PO SCH (21:58)
[2022-10-09] MEDS: FAMOTIDINE 20MG TABLET PO SCH (21:58)
[2022-10-09] MEDS: QUETIAPINE FUMARATE 25MG TABLET PO SCH (21:58)
[2022-10-09] MEDS: PREGABALIN 75MG CAPSULE PO SCH (21:58)
[2022-10-09] MEDS: PANTOT AC/MIN OIL/PET HY-PHL OINT (AQUAPHOR) TOP SCH (21:59)
[2022-10-09] MEDS ORDERED: ALBUTEROL (0.083%) 2.5MG/3ML NEB HHN PRN (22:00)
[2022-10-09] MEDS ORDERED: IPRATROPIUM BROMIDE (0.02%) 0.5MG/2.5ML NEB HHN PRN (22:00)
[2022-10-09] MEDS: CEFTRIAXONE 1,000 MG in DEXTROSE 5% WATER 50 ML IV SCH (22:17)
[2022-10-09] MEDS: EPOETIN ALFA-EPBX 4,000 UNIT/ML VIAL SUBCUT SCH (22:52)
[2022-10-10] VITALS (25 sets, daily range): BP systolic 124–200; BP diastolic 73–122
[2022-10-10 06:14] LABS: HEMATOCRIT 25.3 % (42.0-52.0); HEMOGLOBIN 8.3 g/dL (14.0-18.0); MEAN CORPUSCULAR VOLUME 91.1 fL (80.0-94.0); PLATELET 159 x1000/uL (130-400); RED BLOOD CELL COUNT 2.78 mill/uL (4.7-6.1); RED CELL DISTRIBUTION WIDTH 17.1 % (11.6-14.6)
[2022-10-10 06:16] LABS: INR 1.1; PROTHROMBIN TIME 11.4 sec (9.6-11.0)
[2022-10-10] MEDS: INSULIN LISPRO 100 UNITS/ML SUBCUT SCH ×4 (06:24→21:23)
[2022-10-10] MEDS: BLOOD SUGAR DIAGNOSTIC STRIP TEST SCH ×4 (06:24→21:13)
[2022-10-10] MEDS: CALCIUM ACETATE 667MG CAPSULE PO SCH ×3 (07:10→17:10)
[2022-10-10] MEDS ORDERED: LIDOCAINE HCL/EPINEPHRINE 1%-EPI 1:100,000 20 ML VIAL ONE (07:21)
[2022-10-10] MEDS ORDERED: FENTANYL CITRATE/PF 50MCG/ML 2ML VIAL ONE (07:21)
[2022-10-10] MEDS ORDERED: FENTANYL CITRATE/PF 50MCG/ML 2ML VIAL IV NR (07:21)
[2022-10-10] MEDS ORDERED: LIDOCAINE HCL 1% 10 MG/ML 10ML VIAL ONE ×2 (07:21→08:28)
[2022-10-10 07:53] LABS: PHOSPHORUS 5.1 mg/dL (2.5-4.9)
[2022-10-10] MEDS: FERROUS SULFATE 325MG TABLET PO SCH (08:35)
[2022-10-10] MEDS: CARVEDILOL 12.5MG TABLET PO SCH ×3 (08:35→20:47)
[2022-10-10] MEDS: METRONIDAZOLE 500MG TABLET PO SCH ×2 (08:35→20:48)
[2022-10-10] MEDS: BUDESONIDE 0.5MG/2ML NEB HHN SCH ×2 (08:35→09:21)
[2022-10-10] MEDS: ASPIRIN 81MG EC TABLET PO SCH ×2 (08:35→09:59)
[2022-10-10] MEDS: CHOLECALCIFEROL (D3) 1000 UNIT TABLET PO SCH (08:36)
[2022-10-10] MEDS: SENNOSIDES/DOCUSATE SOD 8.6/50MG TABLET PO SCH ×2 (08:36→17:00)
[2022-10-10] MEDS: PANTOT AC/MIN OIL/PET HY-PHL OINT (AQUAPHOR) TOP SCH ×2 (08:36→17:39)
[2022-10-10] MEDS: FOLIC ACID/VITAMIN B COMP W-C TABLET PO SCH (08:36)
[2022-10-10] MEDS: ENOXAPARIN 30MG/0.3ML SYR SUBCUT SCH ×2 (08:36→10:01)
[2022-10-10] MEDS: AMLODIPINE 2.5MG TABLET PO SCH ×2 (08:37→10:00)
[2022-10-10] MEDS: CLOPIDOGREL 75MG TABLET PO SCH ×2 (08:37→09:59)
[2022-10-10] MEDS: CLONIDINE 0.1MG TABLET PO SCH ×2 (12:19→20:47)
[2022-10-10] MEDS: AMLODIPINE 5MG TABLET PO SCH (17:00)
[2022-10-10] MEDS: ATORVASTATIN CALCIUM 20MG TABLET PO SCH (20:47)
[2022-10-10] MEDS: LOSARTAN POTASSIUM 100 MG TABLET PO SCH (20:48)
[2022-10-10] MEDS: QUETIAPINE FUMARATE 25MG TABLET PO SCH (20:48)
[2022-10-10] MEDS: FAMOTIDINE 20MG TABLET PO SCH (20:48)
[2022-10-10] MEDS: PREGABALIN 75MG CAPSULE PO SCH (21:05)
[2022-10-10] MEDS: CEFTRIAXONE 1,000 MG in DEXTROSE 5% WATER 50 ML IV SCH (21:16)
[2022-10-11] VITALS: BP 179/87
[2022-10-11 04:00] VITALS: BP 177/87
[2022-10-11] MEDS: HYDRALAZINE 20MG/ML VIAL IV PRN (05:10)
[2022-10-11] MEDS: INSULIN LISPRO 100 UNITS/ML SUBCUT SCH ×4 (06:22→21:00)
[2022-10-11] MEDS: BLOOD SUGAR DIAGNOSTIC STRIP TEST SCH ×4 (06:22→21:43)
[2022-10-11 07:23] LABS: PHOSPHORUS 3.5 mg/dL (2.5-4.9)
[2022-10-11 08:00] VITALS: BP 186/91
[2022-10-11] MEDS: CALCIUM ACETATE 667MG CAPSULE PO SCH ×3 (08:11→18:25)
[2022-10-11] MEDS: AMLODIPINE 5MG TABLET PO SCH ×2 (08:46→18:25)
[2022-10-11] MEDS: CLONIDINE 0.1MG TABLET PO SCH ×3 (08:47→22:49)
[2022-10-11] MEDS: FOLIC ACID/VITAMIN B COMP W-C TABLET PO SCH (08:48)
[2022-10-11] MEDS: CHOLECALCIFEROL (D3) 1000 UNIT TABLET PO SCH (08:48)
[2022-10-11] MEDS: ASPIRIN 81MG EC TABLET PO SCH (08:48)
[2022-10-11] MEDS: SENNOSIDES/DOCUSATE SOD 8.6/50MG TABLET PO SCH ×2 (08:49→18:25)
[2022-10-11] MEDS: METRONIDAZOLE 500MG TABLET PO SCH ×2 (08:49→21:41)
[2022-10-11] MEDS: FERROUS SULFATE 325MG TABLET PO SCH (08:49)
[2022-10-11] MEDS: CARVEDILOL 12.5MG TABLET PO SCH ×2 (08:55→21:42)
[2022-10-11] MEDS ORDERED: HYDROCODONE/ACETAMINOPHEN 5/325MG TABLET PO NR (11:45)
[2022-10-11] MEDS ORDERED: NALOXONE HCL 0.4MG/ML VIAL IV PRN (11:45)
[2022-10-11] MEDS: ISOSORBIDE MONONITRATE 30MG TABLET SR 24HR PO SCH (11:58)
[2022-10-11 12:00] VITALS: BP 168/78
[2022-10-11] MEDS: PANTOT AC/MIN OIL/PET HY-PHL OINT (AQUAPHOR) TOP SCH ×2 (12:23→18:25)
[2022-10-11] MEDS: BUDESONIDE 0.5MG/2ML NEB HHN SCH ×2 (14:35→22:10)
[2022-10-11 16:00] VITALS: BP 167/78
[2022-10-11 16:09] LABS: HEPATITIS B SURFACE AB 16.1 mIU/mL
[2022-10-11] MEDS: CEFTRIAXONE 1,000 MG in DEXTROSE 5% WATER 50 ML IV SCH (21:40)
[2022-10-11] MEDS: FAMOTIDINE 20MG TABLET PO SCH (21:41)
[2022-10-11] MEDS: LOSARTAN POTASSIUM 100 MG TABLET PO SCH (21:41)
[2022-10-11] MEDS: QUETIAPINE FUMARATE 25MG TABLET PO SCH (21:41)
[2022-10-11] MEDS: ATORVASTATIN CALCIUM 20MG TABLET PO SCH (21:41)
[2022-10-11] MEDS: EPOETIN ALFA-EPBX 4,000 UNIT/ML VIAL SUBCUT SCH (21:42)
[2022-10-11] MEDS: PREGABALIN 75MG CAPSULE PO SCH (21:42)
[2022-10-12] VITALS (14 sets, daily range): BP systolic 130–189; BP diastolic 67–92
[2022-10-12] MEDS: CALCIUM ACETATE 667MG CAPSULE PO SCH ×3 (06:44→17:23)
[2022-10-12] MEDS: CLONIDINE 0.1MG TABLET PO SCH ×3 (06:44→21:05)
[2022-10-12] MEDS: BLOOD SUGAR DIAGNOSTIC STRIP TEST SCH ×4 (06:44→21:05)
[2022-10-12] MEDS: INSULIN LISPRO 100 UNITS/ML SUBCUT SCH ×4 (06:44→21:06)
[2022-10-12] MEDS: AMLODIPINE 5MG TABLET PO SCH ×3 (09:00→17:23)
[2022-10-12] MEDS: CARVEDILOL 12.5MG TABLET PO SCH ×2 (09:00→21:04)
[2022-10-12] MEDS: ISOSORBIDE MONONITRATE 30MG TABLET SR 24HR PO SCH ×2 (09:00→10:55)
[2022-10-12] MEDS: BUDESONIDE 0.5MG/2ML NEB HHN SCH ×2 (09:30→20:54)
[2022-10-12] MEDS: SENNOSIDES/DOCUSATE SOD 8.6/50MG TABLET PO SCH ×2 (09:49→17:00)
[2022-10-12] MEDS: METRONIDAZOLE 500MG TABLET PO SCH ×2 (09:50→21:03)
[2022-10-12] MEDS: ASPIRIN 81MG EC TABLET PO SCH (09:50)
[2022-10-12] MEDS: CHOLECALCIFEROL (D3) 1000 UNIT TABLET PO SCH (09:50)
[2022-10-12] MEDS: FERROUS SULFATE 325MG TABLET PO SCH (09:50)
[2022-10-12] MEDS: FOLIC ACID/VITAMIN B COMP W-C TABLET PO SCH (09:51)
[2022-10-12] MEDS: PANTOT AC/MIN OIL/PET HY-PHL OINT (AQUAPHOR) TOP SCH ×2 (09:52→17:24)
[2022-10-12] MEDS: HYDROCODONE/ACETAMINOPHEN 5/325MG TABLET PO PRN (10:00)
[2022-10-12 12:36] LABS: EOSINOPHILS % 1.8 % (0.0-5.0); HEMATOCRIT. 24.6 % (42.0-52.0); HEMOGLOBIN. 7.9 g/dL (14.0-18.0); LYMPHOCYTES % 16.5 % (20.0-50.0); MEAN CORPUSCULAR HEMOGLOBIN 29.5 pg (28.0-32.0); MEAN PLATELET VOLUME 10.2 fl (7.4-10.4); MONOCYTES % 8.1 % (2.0-8.0); NEUTROPHILS % 72.6 % (40.0-76.0); PLATELET 156 x1000/uL (130-400); RED BLOOD CELL COUNT 2.68 mill/uL (4.7-6.1); RED CELL DISTRIBUTION WIDTH 17.6 % (11.6-14.6)
[2022-10-12 12:39] LABS: MEAN CORPUSCULAR VOLUME 91.7 fL (80.0-94.0)
[2022-10-12] MEDS: QUETIAPINE FUMARATE 25MG TABLET PO SCH (21:03)
[2022-10-12] MEDS: ATORVASTATIN CALCIUM 20MG TABLET PO SCH (21:03)
[2022-10-12] MEDS: FAMOTIDINE 20MG TABLET PO SCH (21:03)
[2022-10-12] MEDS: PREGABALIN 75MG CAPSULE PO SCH (21:03)
[2022-10-12] MEDS: CEFTRIAXONE 1,000 MG in DEXTROSE 5% WATER 50 ML IV SCH (21:03)
[2022-10-12] MEDS: LOSARTAN POTASSIUM 100 MG TABLET PO SCH (21:04)
[2022-10-13] VITALS: BP 160/85
[2022-10-13 04:00] VITALS: BP 149/74
[2022-10-13] MEDS: BLOOD SUGAR DIAGNOSTIC STRIP TEST SCH ×4 (06:03→21:23)
[2022-10-13] MEDS: CLONIDINE 0.1MG TABLET PO SCH ×3 (06:22→21:23)
[2022-10-13] MEDS: INSULIN LISPRO 100 UNITS/ML SUBCUT SCH ×4 (06:26→21:00)
[2022-10-13 08:00] VITALS: BP 160/80
[2022-10-13] MEDS: FERROUS SULFATE 325MG TABLET PO SCH (09:07)
[2022-10-13] MEDS: CALCIUM ACETATE 667MG CAPSULE PO SCH ×3 (09:07→16:22)
[2022-10-13] MEDS: ISOSORBIDE MONONITRATE 30MG TABLET SR 24HR PO SCH (09:08)
[2022-10-13] MEDS: ASPIRIN 81MG EC TABLET PO SCH (09:08)
[2022-10-13] MEDS: CHOLECALCIFEROL (D3) 1000 UNIT TABLET PO SCH (09:08)
[2022-10-13] MEDS: AMLODIPINE 5MG TABLET PO SCH ×2 (09:09→16:23)
[2022-10-13] MEDS: SENNOSIDES/DOCUSATE SOD 8.6/50MG TABLET PO SCH ×2 (09:09→16:22)
[2022-10-13] MEDS: METRONIDAZOLE 500MG TABLET PO SCH ×2 (09:09→21:37)
[2022-10-13] MEDS: CARVEDILOL 12.5MG TABLET PO SCH ×2 (09:11→21:24)
[2022-10-13] MEDS: FOLIC ACID/VITAMIN B COMP W-C TABLET PO SCH (09:15)
[2022-10-13] MEDS: PANTOT AC/MIN OIL/PET HY-PHL OINT (AQUAPHOR) TOP SCH ×2 (09:22→16:32)
[2022-10-13 09:38] LABS: BASOPHILS % 1.1 % (0.0-2.0); HEMATOCRIT. 23.5 % (42.0-52.0); HEMOGLOBIN. 7.5 g/dL (14.0-18.0); LYMPHOCYTES % 19.8 % (20.0-50.0); MEAN CORPUSCULAR VOLUME 90.7 fL (80.0-94.0); MEAN PLATELET VOLUME 10.3 fl (7.4-10.4); MONOCYTES % 10.7 % (2.0-8.0); NEUTROPHILS % 65.4 % (40.0-76.0); PLATELET 149 x1000/uL (130-400); RED BLOOD CELL COUNT 2.59 mill/uL (4.7-6.1); RED CELL DISTRIBUTION WIDTH 17.2 % (11.6-14.6)
[2022-10-13 09:49] LABS: PHOSPHORUS 3.3 mg/dL (2.5-4.9)
[2022-10-13 12:00] VITALS: BP 155/74
[2022-10-13 16:00] VITALS: BP 155/79
[2022-10-13 20:00] VITALS: BP 150/74
[2022-10-13] MEDS: FAMOTIDINE 20MG TABLET PO SCH (21:23)
[2022-10-13] MEDS: PREGABALIN 75MG CAPSULE PO SCH (21:23)
[2022-10-13] MEDS: LOSARTAN POTASSIUM 100 MG TABLET PO SCH (21:23)
[2022-10-13] MEDS: ATORVASTATIN CALCIUM 20MG TABLET PO SCH (21:32)
[2022-10-13] MEDS: EPOETIN ALFA-EPBX 4,000 UNIT/ML VIAL SUBCUT SCH (21:50)
[2022-10-14] VITALS (18 sets, daily range): BP systolic 154–205; BP diastolic 70–95
[2022-10-14] MEDS: QUETIAPINE FUMARATE 25MG TABLET PO SCH ×2 (00:47→23:20)
[2022-10-14] MEDS: BLOOD SUGAR DIAGNOSTIC STRIP TEST SCH ×4 (06:02→21:00)
[2022-10-14] MEDS: CLONIDINE 0.1MG TABLET PO SCH ×3 (06:03→23:21)
[2022-10-14] MEDS: INSULIN LISPRO 100 UNITS/ML SUBCUT SCH ×4 (06:05→21:00)
[2022-10-14] MEDS: ISOSORBIDE MONONITRATE 30MG TABLET SR 24HR PO SCH (09:00)
[2022-10-14] MEDS: CARVEDILOL 12.5MG TABLET PO SCH ×3 (09:00→23:20)
[2022-10-14] MEDS: AMLODIPINE 5MG TABLET PO SCH ×2 (09:00→17:00)
[2022-10-14] MEDS: SENNOSIDES/DOCUSATE SOD 8.6/50MG TABLET PO SCH ×2 (09:31→17:00)
[2022-10-14] MEDS: CHOLECALCIFEROL (D3) 1000 UNIT TABLET PO SCH (09:31)
[2022-10-14] MEDS: CALCIUM ACETATE 667MG CAPSULE PO SCH ×3 (09:31→18:02)
[2022-10-14] MEDS: FERROUS SULFATE 325MG TABLET PO SCH (09:31)
[2022-10-14] MEDS: FOLIC ACID/VITAMIN B COMP W-C TABLET PO SCH (09:31)
[2022-10-14] MEDS: ASPIRIN 81MG EC TABLET PO SCH (09:31)
[2022-10-14] MEDS: PANTOT AC/MIN OIL/PET HY-PHL OINT (AQUAPHOR) TOP SCH ×2 (09:34→17:53)
[2022-10-14 10:15] LABS: BASOPHILS % 0.9 % (0.0-2.0); EOSINOPHILS % 2.4 % (0.0-5.0); HEMATOCRIT. 24.3 % (42.0-52.0); MEAN CORPUSCULAR HEMOGLOBIN 29.9 pg (28.0-32.0); MEAN CORPUSCULAR VOLUME 90.7 fL (80.0-94.0); MEAN PLATELET VOLUME 10.3 fl (7.4-10.4); MONOCYTES % 10.1 % (2.0-8.0); NEUTROPHILS % 67.6 % (40.0-76.0); PLATELET 165 x1000/uL (130-400); RED BLOOD CELL COUNT 2.67 mill/uL (4.7-6.1); RED CELL DISTRIBUTION WIDTH 17.7 % (11.6-14.6)
[2022-10-14 11:37] LABS: PHOSPHORUS 2.9 mg/dL (2.5-4.9)
[2022-10-14] MEDS: CLONIDINE 0.1MG TABLET PO PRN (18:48)
[2022-10-14] MEDS: FAMOTIDINE 20MG TABLET PO SCH (23:20)
[2022-10-14] MEDS: PREGABALIN 75MG CAPSULE PO SCH (23:20)
[2022-10-14] MEDS: ATORVASTATIN CALCIUM 20MG TABLET PO SCH (23:20)
[2022-10-14] MEDS: LOSARTAN POTASSIUM 100 MG TABLET PO SCH (23:21)
[2022-10-15] VITALS: BP 141/56
[2022-10-15] MEDS: HYDROCODONE/ACETAMINOPHEN 5/325MG TABLET PO PRN (01:35)
[2022-10-15 04:00] VITALS: BP 155/67
[2022-10-15] MEDS: BLOOD SUGAR DIAGNOSTIC STRIP TEST SCH ×4 (05:51→21:46)
[2022-10-15] MEDS: CLONIDINE 0.1MG TABLET PO SCH ×3 (05:51→21:46)
[2022-10-15] MEDS: INSULIN LISPRO 100 UNITS/ML SUBCUT SCH ×4 (05:55→21:00)
[2022-10-15 06:25] LABS: HEMATOCRIT 22.2 % (42.0-52.0); HEMOGLOBIN 7.3 g/dL (14.0-18.0); MEAN CORPUSCULAR HEMOGLOBIN 29.9 pg (28.0-32.0); MEAN CORPUSCULAR VOLUME 91.5 fL (80.0-94.0); PLATELET 153 x1000/uL (130-400); RED BLOOD CELL COUNT 2.43 mill/uL (4.7-6.1); RED CELL DISTRIBUTION WIDTH 17.6 % (11.6-14.6)
[2022-10-15 07:01] LABS: CHLORIDE 110 mEq/L (98-107)
[2022-10-15 07:08] LABS: PHOSPHORUS 2.5 mg/dL (2.5-4.9)
[2022-10-15 08:00] VITALS: BP 146/70
[2022-10-15] MEDS: SENNOSIDES/DOCUSATE SOD 8.6/50MG TABLET PO SCH ×2 (09:00→17:02)
[2022-10-15] MEDS: CARVEDILOL 12.5MG TABLET PO SCH ×2 (09:00→21:45)
[2022-10-15] MEDS: CHOLECALCIFEROL (D3) 1000 UNIT TABLET PO SCH (09:32)
[2022-10-15] MEDS: FERROUS SULFATE 325MG TABLET PO SCH (09:32)
[2022-10-15] MEDS: CALCIUM ACETATE 667MG CAPSULE PO SCH ×3 (09:32→17:02)
[2022-10-15] MEDS: FOLIC ACID/VITAMIN B COMP W-C TABLET PO SCH (09:32)
[2022-10-15] MEDS: ISOSORBIDE MONONITRATE 30MG TABLET SR 24HR PO SCH (09:32)
[2022-10-15] MEDS: AMLODIPINE 5MG TABLET PO SCH ×2 (09:33→16:41)
[2022-10-15] MEDS: ASPIRIN 81MG EC TABLET PO SCH (09:34)
[2022-10-15] MEDS: PANTOT AC/MIN OIL/PET HY-PHL OINT (AQUAPHOR) TOP SCH ×2 (09:34→17:02)
[2022-10-15 12:00] VITALS: BP 160/90
[2022-10-15 16:00] VITALS: BP 110/72
[2022-10-15 20:00] VITALS: BP 159/81
[2022-10-15] MEDS: PREGABALIN 75MG CAPSULE PO SCH (21:43)
[2022-10-15] MEDS: FAMOTIDINE 20MG TABLET PO SCH (21:45)
[2022-10-15] MEDS: ATORVASTATIN CALCIUM 20MG TABLET PO SCH (21:45)
[2022-10-15] MEDS: LOSARTAN POTASSIUM 100 MG TABLET PO SCH (21:45)
[2022-10-15] MEDS: QUETIAPINE FUMARATE 25MG TABLET PO SCH (23:32)
[2022-10-16] VITALS (12 sets, daily range): BP systolic 132–172; BP diastolic 69–89
[2022-10-16] MEDS: CLONIDINE 0.1MG TABLET PO SCH ×2 (06:04→14:00)
[2022-10-16] MEDS: INSULIN LISPRO 100 UNITS/ML SUBCUT SCH ×4 (06:05→17:50)
[2022-10-16] MEDS: BLOOD SUGAR DIAGNOSTIC STRIP TEST SCH ×3 (06:06→17:20)
[2022-10-16 06:28] LABS: BASOPHILS % 0.8 % (0.0-2.0); EOSINOPHILS % 2.1 % (0.0-5.0); HEMATOCRIT. 23.6 % (42.0-52.0); HEMOGLOBIN. 7.7 g/dL (14.0-18.0); MEAN CORPUSCULAR VOLUME 91.7 fL (80.0-94.0); MEAN PLATELET VOLUME 10.4 fl (7.4-10.4); MONOCYTES % 10.3 % (2.0-8.0); NEUTROPHILS % 63.8 % (40.0-76.0); PLATELET 170 x1000/uL (130-400); RED BLOOD CELL COUNT 2.58 mill/uL (4.7-6.1); RED CELL DISTRIBUTION WIDTH 17.5 % (11.6-14.6)
[2022-10-16 06:57] LABS: PHOSPHORUS 2.8 mg/dL (2.5-4.9)
[2022-10-16] MEDS ORDERED: AMLODIPINE 10MG TABLET PO SCH (09:00)
[2022-10-16] MEDS: ASPIRIN 81MG EC TABLET PO SCH (09:13)
[2022-10-16] MEDS: SENNOSIDES/DOCUSATE SOD 8.6/50MG TABLET PO SCH ×2 (09:13→17:00)
[2022-10-16] MEDS: CALCIUM ACETATE 667MG CAPSULE PO SCH ×4 (09:13→17:50)
[2022-10-16] MEDS: FERROUS SULFATE 325MG TABLET PO SCH (09:13)
[2022-10-16] MEDS: FOLIC ACID/VITAMIN B COMP W-C TABLET PO SCH (09:13)
[2022-10-16] MEDS: CHOLECALCIFEROL (D3) 1000 UNIT TABLET PO SCH (09:14)
[2022-10-16] MEDS: ISOSORBIDE MONONITRATE 30MG TABLET SR 24HR PO SCH (09:14)
[2022-10-16] MEDS: CARVEDILOL 12.5MG TABLET PO SCH (09:14)
[2022-10-16] MEDS: PANTOT AC/MIN OIL/PET HY-PHL OINT (AQUAPHOR) TOP SCH ×2 (09:14→17:00)
[2022-10-16] MEDS ORDERED: LOSA100T3 PO (14:54)
[2022-10-16] MEDS ORDERED: NEPVIT PO (14:54)
[2022-10-16] MEDS ORDERED: FERR-63 PO (14:54)
[2022-10-16] MEDS ORDERED: CALC667C PO (14:54)
[2022-10-16] MEDS ORDERED: CHOL-36 PO (14:54)
[2022-10-17] MEDS ORDERED: ISOSORBIDE MONONITRATE 60MG TABLET SR 24HR PO SCH (09:00)
== END 2022-10-16 18:10 | disposition home health service (06) | DRG 673 ==
LOC: ER 14:00 → EDBEDREQ 14:55 → EDBEDREQTM 14:55 → MICUSO 16:27 → EDBEDREQTM 16:30 → EDBEDREQ 16:30 → 7EST 10-08 03:25 → 6EST 10-16 12:37
PROVIDERS: ADMIT Internal Medicine; ATTEND Internal Medicine
PROC: 0JH63XZ Insertion of Tunneled Vascular Access Device into Chest Subcutaneous Tissue and Fascia, Percutaneous Approach (ICD-10-PCS; principal; 2022-10-10)
PROC: 02HV33Z Insertion of Infusion Device into Superior Vena Cava, Percutaneous Approach (ICD-10-PCS; 2022-10-10)
PROC: B5181ZA Fluoroscopy of Superior Vena Cava using Low Osmolar Contrast, Guidance (ICD-10-PCS; 2022-10-10)
PROC: B548ZZA Ultrasonography of Superior Vena Cava, Guidance (ICD-10-PCS; 2022-10-10)
PROC: 5A1D70Z Performance of Urinary Filtration, Intermittent, Less than 6 Hours Per Day (ICD-10-PCS; 2022-10-10)
PROC: 5A1D70Z Performance of Urinary Filtration, Intermittent, Less than 6 Hours Per Day (ICD-10-PCS; 2022-10-12)
PROC: 5A1D70Z Performance of Urinary Filtration, Intermittent, Less than 6 Hours Per Day (ICD-10-PCS; 2022-10-14)
DX: N17.9 Acute kidney failure, unspecified (principal); E43 Unspecified severe protein-calorie malnutrition; I13.2 Hypertensive heart and chronic kidney disease with heart failure and with stage 5 chronic kidney disease, or end stage renal disease; E87.20 Acidosis, unspecified; I50.20 Unspecified systolic (congestive) heart failure; N13.6 Pyonephrosis; N18.6 End stage renal disease; E11.22 Type 2 diabetes mellitus with diabetic chronic kidney disease; D63.8 Anemia in other chronic diseases classified elsewhere; E78.5 Hyperlipidemia, unspecified; E11.40 Type 2 diabetes mellitus with diabetic neuropathy, unspecified; E11.51 Type 2 diabetes mellitus with diabetic peripheral angiopathy without gangrene; D50.9 Iron deficiency anemia, unspecified; E83.39 Other disorders of phosphorus metabolism; I25.10 Atherosclerotic heart disease of native coronary artery without angina pectoris; N40.1 Benign prostatic hyperplasia with lower urinary tract symptoms; Z85.46 Personal history of malignant neoplasm of prostate; Z95.5 Presence of coronary angioplasty implant and graft; Z95.1 Presence of aortocoronary bypass graft; Z79.4 Long term (current) use of insulin; Z79.899 Other long term (current) drug therapy; Z90.79 Acquired absence of other genital organ(s); Z68.29 Body mass index [BMI] 29.0-29.9, adult; Z99.2 Dependence on renal dialysis
CPT/HCPCS: 36415; 36558; 71045; 74176; 76937; 77001; 80048; 80053; 80061; 80305; 81003; 82043; 82570; 82607; 82728; 82746; 82962; 83036; 83540; 83550; 83735; 83880; 84100; 84145; 84153; 84300; 84439; 84443; 84484; 85025; 85027; 86705; 86706; 86803; 87340; 87426; 90732; 90935; 93005; 93306; 93970; 94640; 97116; 97162; 97166; 97530; 99152; 99153; 99291; C1750; C1769; C1887; C1893; J0360; J0696; J0885; J1642; J1650; J1815; J2270; J2405; J3010; J3490; J7060; J7626; A4315; G0103; G0500

== ENCOUNTER → 2023-11-08 | Day surgery (SDC) | payer MEDICARE, MEDICAID ==
[~2023-11-08] VITALS: Ht 167.6 cm; Wt 63.5 kg
[~2023-11-08] MED LIST changes: +CALC667C PO; +CHOL-36 PO; +FERR-63 PO; +FOLI0.8T23 PO; -FURO-152 PO; -GLIP5TAB12 PO; +GLIP5TAB22 PO; -ISOS30TA91 PO; +LOSA-415 PO; -NVLG73 SUBCUT; -PREG75CA PO; +SITA100T11 PO
== END | disposition home or self-care (01) ==
LOC: CCL 08:13
PROVIDERS: ATTEND Specialist
DX: E11.51 Type 2 diabetes mellitus with diabetic peripheral angiopathy without gangrene (principal); Z53.8 Procedure and treatment not carried out for other reasons; I73.9 Peripheral vascular disease, unspecified; I12.0 Hypertensive chronic kidney disease with stage 5 chronic kidney disease or end stage renal disease; N18.6 End stage renal disease; E11.22 Type 2 diabetes mellitus with diabetic chronic kidney disease; N40.0 Benign prostatic hyperplasia without lower urinary tract symptoms; I25.10 Atherosclerotic heart disease of native coronary artery without angina pectoris; I25.2 Old myocardial infarction; Z79.82 Long term (current) use of aspirin; Z79.4 Long term (current) use of insulin; Z79.899 Other long term (current) drug therapy; Z98.890 Other specified postprocedural states
CPT/HCPCS: Z7610 ×4

== ENCOUNTER 2024-01-02 21:55 | Inpatient (IN) | payer MEDICARE, MEDICAID ==
[~2024-01-02] VITALS: Ht 167.6 cm; Wt 81.2 kg
[2024-01-02 21:35] VITALS: BP 152/69; PULSE 79; RESP 18; TEMP 98.1
[~2024-01-02 21:55] MED LIST changes: +FLUO10TA35 MT; +GABA300C MT; +HYDR-4009 PO; +LEVO25TA2 MT; -LOSA-415 PO; +QUET50TA MT; +TRAM50TA3 PO; +VALS160T2 PO
[2024-01-02 22:00] VITALS: BP 152/69; PULSE 79; RESP 18; TEMP 98.1
[2024-01-02] MEDS ORDERED: ENOXAPARIN 80MG/0.8ML SYR SUBCUT STA (22:55)
[2024-01-02] MEDS ORDERED: EPOETIN ALFA 4000UNITS/ML VIAL SUBCUT NR (23:00)
[2024-01-02] MEDS ORDERED: ONDANSETRON HCL 4MG/2ML INJ IV PRN (23:30)
[2024-01-02] MEDS ORDERED: HYDRALAZINE 20MG/ML VIAL IV PRN (23:30)
[2024-01-02] MEDS ORDERED: ACETAMINOPHEN 325MG TABLET PO PRN (23:30)
[2024-01-02] MEDS ORDERED: ATROPINE SULFATE 1MG/10ML SYR IV PRN (23:30)
[2024-01-02] MEDS ORDERED: MORPHINE SULFATE 2 MG/ML CPJ (NOT FOR IM USE) IV PRN (23:30)
[2024-01-02] MEDS ORDERED: DEXTROSE 50% WATER 50ML SYRINGE IV PRN (23:30)
[2024-01-02] MEDS: GABAPENTIN 300MG CAPSULE PO SCH (23:50)
[2024-01-03] VITALS: BP 100/68; PULSE 18; RESP 18; TEMP 97
[2024-01-03] MEDS ORDERED: HYDRALAZINE 5 MG in SODIUM CHLORIDE 0.9% 49.5 ML IV PRN (00:45)
[2024-01-03] MEDS: HYDROCODONE/ACETAMINOPHEN 5/325MG TABLET PO PRN (04:34)
[2024-01-03] MEDS: BLOOD SUGAR DIAGNOSTIC STRIP TEST SCH (05:41)
[2024-01-03] MEDS: LEVOTHYROXINE SODIUM 25MCG TABLET PO SCH (07:03)
[2024-01-03] MEDS: CLONIDINE 0.1MG TABLET PO SCH (07:03)
[2024-01-03 08:00] VITALS: BP 133/65; PULSE 71; RESP 18; TEMP 97.3
[2024-01-03] MEDS: ASPIRIN 81MG EC TABLET PO SCH (08:36)
[2024-01-03] MEDS: CALCIUM ACETATE 667MG CAPSULE PO SCH (08:36)
[2024-01-03] MEDS: CARVEDILOL 12.5MG TABLET PO SCH (08:36)
[2024-01-03] MEDS: FLUOXETINE HCL 10 MG CAPSULE PO SCH (08:37)
[2024-01-03] MEDS: AMLODIPINE 5MG TABLET PO SCH (08:37)
[2024-01-03] MEDS: INSULIN LISPRO 100 UNITS/ML SUBCUT SCH (08:43)
[2024-01-03] MEDS: SODIUM CHLORIDE 0.9% INJ 3ML FLUSH IVF SCH (08:44)
[2024-01-03 10:36] LABS: BASOPHILS % 1.1 % (0.0-2.0); EOSINOPHILS % 1.5 % (0.0-5.0); HEMATOCRIT. 22.4 % (42.0-52.0); HEMOGLOBIN. 7.5 g/dL (14.0-18.0); LYMPHOCYTES % 15.6 % (20.0-50.0); MEAN CORPUSCULAR HEMOGLOBIN 33.1 pg (28.0-32.0); MEAN CORPUSCULAR HGB CONC 33.5 g/dL (31.0-37.0); MEAN CORPUSCULAR VOLUME 98.8 fL (80.0-94.0); MEAN PLATELET VOLUME 10.2 fl (7.4-10.4); MONOCYTES % 7.1 % (2.0-8.0); NEUTROPHILS % 74.7 % (40.0-76.0); PLATELET 270 x1000/uL (130-400); RED BLOOD CELL COUNT 2.27 mill/uL (4.7-6.1); RED CELL DISTRIBUTION WIDTH 18.4 % (11.6-14.6); WHITE BLOOD COUNT 8.9 x1000/uL (4.5-11.0)
[2024-01-03 10:57] LABS: CARBON DIOXIDE 27 mEq/L (21-32)
[2024-01-03 10:58] LABS: CALCIUM 8.9 mg/dL (8.7-10.4)
[2024-01-03 11:03] LABS: GLUCOSE 143 mg/dL (70-105); UREA NITROGEN BLOOD 50 mg/dL (9-23)
[2024-01-03 11:04] LABS: ALANINE AMINOTRANSFERASE 26 IU/L (10-49); ASPARTATE AMINOTRANSFERASE 24 IU/L (<34)
[2024-01-03 11:05] LABS: BILIRUBIN TOTAL < 0.2 mg/dL (0.1-1.0); CREATININE 7.3 mg/dL (0.6-1.3); PREALBUMIN 8.5 mg/dl (10.0-40.0)
[2024-01-03] MEDS ORDERED: NALOXONE HCL 0.4MG/ML VIAL IV PRN (11:15)
[2024-01-03 12:15] LABS: CHLORIDE 100 mEq/L (98-107); POTASSIUM 3.6 mEq/L (3.5-5.1); SODIUM 137 mEq/L (136-145)
[2024-01-03 13:09] LABS: CARBON DIOXIDE 27 mEq/L (21-32); CHLORIDE 99 mEq/L (98-107); POTASSIUM 3.6 mEq/L (3.5-5.1); SODIUM 136 mEq/L (136-145)
[2024-01-03 13:13] LABS: THYROID STIMULATING HORMONE 3.03 uIU/mL (0.55-4.78)
[2024-01-03 13:14] LABS: GLUCOSE 265 mg/dL (70-105); IRON 27 ug/dL (65-175)
[2024-01-03 13:15] LABS: UREA NITROGEN BLOOD 48 mg/dL (9-23)
[2024-01-03 13:16] LABS: ALBUMIN 2.7 g/dL (3.2-4.8)
[2024-01-03 13:17] LABS: AMMONIA < 17 uMol/L (<32); BILIRUBIN TOTAL < 0.2 mg/dL (0.1-1.0); PROTEIN TOTAL 5.7 g/dL (6.0-8.3); TOTAL IRON BINDING CAPACITY 304 ug/dl (250-425)
[2024-01-03 13:37] LABS: CALCIUM 8.9 mg/dL (8.7-10.4); CREATININE 7.8 mg/dL (0.6-1.3)
[2024-01-03 13:44] LABS: ALANINE AMINOTRANSFERASE 23 IU/L (10-49); ASPARTATE AMINOTRANSFERASE 22 IU/L (<34)
[2024-01-03 13:48] LABS: FERRITIN 560 ng/mL (22-322)
[2024-01-03 13:51] LABS: VITAMIN B12 SERUM 926 pg/mL (211-911)
[2024-01-03 16:20] LABS: FOLIC ACID (FOLATE) SERUM 7.76 ng/mL (>5.38)
[2024-01-03 19:43] VITALS: BP 136/65; PULSE 68; RESP 19; TEMP 97.9
[2024-01-03] MEDS ORDERED: ENOXAPARIN 80MG/0.8ML SYR SUBCUT SCH ×2 (20:00)
[2024-01-03] MEDS: QUETIAPINE FUMARATE 50MG TABLET PO SCH (22:00)
[2024-01-03] MEDS: INSULIN GLARGINE 100 UNITS/ML SUBCUT SCH (22:00)
[2024-01-04 08:00] VITALS: BP 159/68; PULSE 77; RESP 19; TEMP 98.1
[2024-01-04] MEDS: ERGOCALCIFEROL 50000UNITS CAPSULE PO SCH (17:47)
[2024-01-04] MEDS: FERROUS SULFATE 325MG TABLET PO SCH (17:49)
[2024-01-04 20:00] VITALS: BP 110/70; PULSE 77; RESP 18; TEMP 98
[2024-01-04] MEDS: EPOETIN ALFA 4000UNITS/ML VIAL SUBCUT SCH (22:21)
[2024-01-05] VITALS (11 sets, daily range): BP systolic 12–152; BP diastolic 45–82; PULSE 62–78; RESP 14–19; TEMP 97.5–100.8
[2024-01-05 06:29] LABS: BASOPHILS % 1.2 % (0.0-2.0); EOSINOPHILS % 2.1 % (0.0-5.0); LYMPHOCYTES % 19.9 % (20.0-50.0); MEAN CORPUSCULAR HEMOGLOBIN 34.8 pg (28.0-32.0); MEAN CORPUSCULAR HGB CONC 35.1 g/dL (31.0-37.0); MEAN CORPUSCULAR VOLUME 99.2 fL (80.0-94.0); MEAN PLATELET VOLUME 9.6 fl (7.4-10.4); MONOCYTES % 8.3 % (2.0-8.0); NEUTROPHILS % 68.5 % (40.0-76.0); PLATELET 302 x1000/uL (130-400); RED BLOOD CELL COUNT 2.08 mill/uL (4.7-6.1); RED CELL DISTRIBUTION WIDTH 18.2 % (11.6-14.6)
[2024-01-05 06:32] LABS: POTASSIUM 4.1 mEq/L (3.5-5.1)
[2024-01-05 06:42] LABS: HEMATOCRIT. 20.6 % (42.0-52.0); HEMOGLOBIN. 7.2 g/dL (14.0-18.0)
[2024-01-05 07:22] LABS: CREATININE 9.3 mg/dL (0.6-1.3)
[2024-01-05] MEDS: ASPIRIN 81MG EC TABLET PO SCH (09:04)
[2024-01-05] MEDS: ASCORBIC ACID 500 MG TABLET PO SCH (09:04)
[2024-01-06 08:00] VITALS: BP 130/51; PULSE 65; RESP 19; TEMP 97.9
[2024-01-06 08:53] VITALS: BP 130/51
[2024-01-06 20:00] VITALS: BP 135/88; PULSE 67; RESP 20; TEMP 97.6
[2024-01-07] VITALS (11 sets, daily range): BP systolic 108–139; BP diastolic 53–61; PULSE 57–65; RESP 15–20; TEMP 97.2–102.2
[2024-01-07 06:37] LABS: POTASSIUM 3.9 mEq/L (3.5-5.1)
[2024-01-07 07:01] LABS: CREATININE 8.3 mg/dL (0.6-1.3)
[2024-01-07 07:46] LABS: BASOPHILS % 1.3 % (0.0-2.0); EOSINOPHILS % 1.9 % (0.0-5.0); LYMPHOCYTES % 13.3 % (20.0-50.0); MEAN CORPUSCULAR HEMOGLOBIN 33.5 pg (28.0-32.0); MEAN CORPUSCULAR HGB CONC 33.5 g/dL (31.0-37.0); MEAN CORPUSCULAR VOLUME 99.9 fL (80.0-94.0); MEAN PLATELET VOLUME 9.7 fl (7.4-10.4); MONOCYTES % 8.3 % (2.0-8.0); NEUTROPHILS % 75.2 % (40.0-76.0); PLATELET 342 x1000/uL (130-400); RED BLOOD CELL COUNT 2.08 mill/uL (4.7-6.1); RED CELL DISTRIBUTION WIDTH 18.5 % (11.6-14.6); WHITE BLOOD COUNT 7.4 x1000/uL (4.5-11.0)
[2024-01-07 08:16] LABS: HEMATOCRIT. 20.8 % (42.0-52.0)
[2024-01-07] MEDS: ACETAMINOPHEN 650MG/20.3ML UDC PO PRN (10:15)
[2024-01-07] MEDS: MORPHINE SULFATE 2 MG/ML CPJ (NOT FOR IM USE) IV NR (14:00)
[2024-01-07 15:27] LABS: CLARITY URINE CLOUDY (CLEAR); COLOR URINE YELLOW (YELLOW); GLUCOSE URINE 1+ (NEGATIVE); KETONES URINE NEGATIVE (NEGATIVE); LEUKOCYTE ESTERASE URINE 1+ (NEGATIVE); NITRITE URINE NEGATIVE (NEGATIVE); OCCULT BLOOD URINE NEGATIVE (NEGATIVE); PROTEIN URINE 2+ (NEGATIVE); SPECIFIC GRAVITY URINE 1.009 (1.005-1.030); UROBILINOGEN URINE 0.2 E.U./dL (0.2-1.0)
[2024-01-07 16:03] LABS: BACTERIA URINE 1+; RBC URINE 0-2 /hpf (0-2); SQUAMOUS EPITHELIAL CELL URINE 1+ /lpf (RARE/1+)
[2024-01-07 16:05] LABS: YEAST URINE 2+
[2024-01-07] MEDS: EPOETIN ALFA 4000UNITS/ML VIAL SUBCUT SCH (22:05)
[2024-01-07] MEDS: MORPHINE SULFATE 2 MG/ML CPJ (NOT FOR IM USE) IV PRN (22:28)
[2024-01-07] MEDS: SENNOSIDES/DOCUSATE SOD 8.6/50MG TABLET PO PRN (23:58)
[2024-01-08 06:00] VITALS: BP 151/65; PULSE 66; RESP 18; TEMP 97.2
[2024-01-08 08:00] VITALS: BP 132/61; PULSE 64; RESP 18; TEMP 97.2
[2024-01-08] MEDS: FOLIC ACID/VITAMIN B COMP W-C TABLET PO SCH (08:22)
[2024-01-08] MEDS: SENNOSIDES/DOCUSATE SOD 8.6/50MG TABLET PO PRN (09:36)
[2024-01-08 19:56] LABS: HEMATOCRIT 27.4 % (42.0-52.0); HEMOGLOBIN 9.1 g/dL (14.0-18.0)
[2024-01-08 20:00] VITALS: BP 141/57; PULSE 65; RESP 19; TEMP 98
[2024-01-09] VITALS (10 sets, daily range): BP systolic 124–147; BP diastolic 53–67; PULSE 62–83; RESP 16–70; TEMP 97.6–100
[2024-01-09 07:19] LABS: POTASSIUM 4.1 mEq/L (3.5-5.1)
[2024-01-09 07:20] LABS: CALCIUM 8.9 mg/dL (8.7-10.4)
[2024-01-09 07:28] LABS: BASOPHILS % 1.3 % (0.0-2.0); EOSINOPHILS % 1.5 % (0.0-5.0); HEMATOCRIT. 27.3 % (42.0-52.0); HEMOGLOBIN. 9.1 g/dL (14.0-18.0); LYMPHOCYTES % 15.8 % (20.0-50.0); MEAN CORPUSCULAR HEMOGLOBIN 32.6 pg (28.0-32.0); MEAN CORPUSCULAR HGB CONC 33.4 g/dL (31.0-37.0); MEAN CORPUSCULAR VOLUME 97.4 fL (80.0-94.0); MONOCYTES % 8.5 % (2.0-8.0); NEUTROPHILS % 72.9 % (40.0-76.0); RED CELL DISTRIBUTION WIDTH 20.4 % (11.6-14.6)
[2024-01-09 07:34] LABS: CREATININE 7.2 mg/dL (0.6-1.3)
[2024-01-09 08:13] LABS: DIFFERENTIAL COMMENT 1
[2024-01-09 17:37] LABS: MEAN PLATELET VOLUME 10.1 fl (7.4-10.4); PLATELET 319 x1000/uL (130-400)
[2024-01-09 19:10] LABS: CLARITY URINE CLEAR (CLEAR); COLOR URINE YELLOW (YELLOW); GLUCOSE URINE 2+ (NEGATIVE); KETONES URINE NEGATIVE (NEGATIVE); LEUKOCYTE ESTERASE URINE 2+ (NEGATIVE); NITRITE URINE NEGATIVE (NEGATIVE); OCCULT BLOOD URINE 1+ (NEGATIVE); PROTEIN URINE 2+ (NEGATIVE); SPECIFIC GRAVITY URINE 1.014 (1.005-1.030); UROBILINOGEN URINE 0.2 E.U./dL (0.2-1.0)
[2024-01-09 19:25] LABS: SQUAMOUS EPITHELIAL CELL URINE 1+ /lpf (RARE/1+)
[2024-01-09 19:26] LABS: BACTERIA URINE TRACE
[2024-01-09] MEDS: SIMETHICONE 80MG TABLET CHEW PO PRN (22:31)
[2024-01-10] VITALS: BP 133/66; PULSE 70; RESP 17
[2024-01-10 00:05] VITALS: BP 144/64; PULSE 66; RESP 18; TEMP 99
[2024-01-10 08:00] VITALS: BP 136/52; PULSE 80; RESP 20; TEMP 101.8
[2024-01-10] MEDS ORDERED: HYDROCODONE/ACETAMINOPHEN 10/325MG TABLET PO PRN (10:30)
[2024-01-10] MEDS ORDERED: HYDROCODONE/ACETAMINOPHEN 5/325MG TABLET PO PRN (10:30)
[2024-01-10] MEDS ORDERED: HYDRALAZINE 5 MG in SODIUM CHLORIDE 0.9% 49.75 ML IV PRN (13:10)
[2024-01-10] MEDS ORDERED: LACTULOSE 20G/30ML UDC PO PRN (13:15)
[2024-01-10] MEDS: LACTULOSE 20G/30ML UDC PO SCH (14:42)
[2024-01-10] MEDS: DOCUSATE SODIUM 100MG CAPSULE PO SCH (18:19)
[2024-01-10] MEDS: CEFEPIME 1GM/50ML 50 ML IV SCH (18:20)
[2024-01-10 20:00] VITALS: BP 156/62; PULSE 75; RESP 18; TEMP 98.1
[2024-01-10] MEDS: DEXT 5%/0.9% NACL 1,000 ML IV SCH (20:24)
[2024-01-10] MEDS: VANCOMYCIN 1G PREMIX 200 ML IV SCH (20:25)
[2024-01-10 21:30] VITALS: BP 156/62; PULSE 75; RESP 18; TEMP 98.1
[2024-01-10] MEDS: NA PHOS,M-B/NA PHOS,DI-BA ENEMA 118ML PR NR (21:41)
[2024-01-10] MEDS: INSULIN LISPRO 100 UNITS/ML SUBCUT SCH (23:21)
[2024-01-11] VITALS (11 sets, daily range): BP systolic 121–147; BP diastolic 54–67; PULSE 60–68; RESP 16–19; TEMP 97.1–98.6
[2024-01-11 06:42] LABS: CHLORIDE 103 mEq/L (98-107); POTASSIUM 3.8 mEq/L (3.5-5.1); SODIUM 138 mEq/L (136-145)
[2024-01-11 06:45] LABS: CARBON DIOXIDE 29 mEq/L (21-32)
[2024-01-11 06:46] LABS: CALCIUM 8.8 mg/dL (8.7-10.4)
[2024-01-11 06:51] LABS: GLUCOSE 212 mg/dL (70-105); UREA NITROGEN BLOOD 36 mg/dL (9-23)
[2024-01-11 06:52] LABS: ALBUMIN 2.6 g/dL (3.2-4.8)
[2024-01-11 06:53] LABS: ALANINE AMINOTRANSFERASE 27 IU/L (10-49); ASPARTATE AMINOTRANSFERASE 37 IU/L (<34); BILIRUBIN TOTAL 0.2 mg/dL (0.1-1.0); PROTEIN TOTAL 5.6 g/dL (6.0-8.3)
[2024-01-11 06:54] LABS: CREATINE KINASE 35 IU/L (46-171)
[2024-01-11 07:13] LABS: BILIRUBIN DIRECT < 0.1 mg/dL (<=3.0)
[2024-01-11 07:14] LABS: CREATININE 5.4 mg/dL (0.6-1.3)
[2024-01-11 07:26] LABS: BASOPHILS % 1.4 % (0.0-2.0); EOSINOPHILS % 0.7 % (0.0-5.0); HEMATOCRIT. 24.2 % (42.0-52.0); HEMOGLOBIN. 8.1 g/dL (14.0-18.0); LYMPHOCYTES % 10.5 % (20.0-50.0); MEAN CORPUSCULAR HEMOGLOBIN 32.6 pg (28.0-32.0); MEAN CORPUSCULAR HGB CONC 33.5 g/dL (31.0-37.0); MEAN CORPUSCULAR VOLUME 97.2 fL (80.0-94.0); NEUTROPHILS % 79.4 % (40.0-76.0); PLATELET 281 x1000/uL (130-400); RED BLOOD CELL COUNT 2.49 mill/uL (4.7-6.1); RED CELL DISTRIBUTION WIDTH 19.5 % (11.6-14.6); WHITE BLOOD COUNT 10.5 x1000/uL (4.5-11.0)
[2024-01-11] MEDS ORDERED: INSULIN LISPRO 100 UNITS/ML SUBCUT SCH (09:00)
[2024-01-11] MEDS ORDERED: MAGNESIUM HYDROXIDE 400MG/5ML 30ML UDC PO PRN (18:15)
[2024-01-11] MEDS ORDERED: NA PHOS,M-B/NA PHOS,DI-BA ENEMA 118ML PR PRN (18:15)
[2024-01-11] MEDS: SENNOSIDES/DOCUSATE SOD 8.6/50MG TABLET PO SCH (18:43)
[2024-01-11] MEDS: POLYETHYLENE GLYCOL 3350 (17GM) 1 DOSE PACK PO SCH (18:43)
[2024-01-12 08:00] VITALS: BP 139/67; PULSE 66; RESP 17; TEMP 97.5
[2024-01-12 08:51] LABS: CALCIUM 8.5 mg/dL (8.7-10.4); POTASSIUM 4.1 mEq/L (3.5-5.1)
[2024-01-12 08:54] LABS: BASOPHILS % 1.2 % (0.0-2.0); CREATININE 4.8 mg/dL (0.6-1.3); EOSINOPHILS % 1.8 % (0.0-5.0); HEMATOCRIT. 26.2 % (42.0-52.0); HEMOGLOBIN. 8.8 g/dL (14.0-18.0); LYMPHOCYTES % 8.2 % (20.0-50.0); MEAN CORPUSCULAR HEMOGLOBIN 32.3 pg (28.0-32.0); MEAN CORPUSCULAR HGB CONC 33.6 g/dL (31.0-37.0); MEAN CORPUSCULAR VOLUME 96.1 fL (80.0-94.0); MEAN PLATELET VOLUME 10.4 fl (7.4-10.4); MONOCYTES % 8.5 % (2.0-8.0); NEUTROPHILS % 80.3 % (40.0-76.0); PLATELET 283 x1000/uL (130-400); RED BLOOD CELL COUNT 2.73 mill/uL (4.7-6.1); RED CELL DISTRIBUTION WIDTH 19.4 % (11.6-14.6); WHITE BLOOD COUNT 10.2 x1000/uL (4.5-11.0)
[2024-01-12] MEDS: INSULIN LISPRO 100 UNITS/ML SUBCUT NR (12:36)
[2024-01-12 20:00] VITALS: BP 148/56; PULSE 72; RESP 18; TEMP 98.6
[2024-01-12] MEDS: LACTULOSE 20G/30ML UDC PO NR (21:43)
[2024-01-12] MEDS: MENTHOL/LANOLIN/CALAMINE/ZN OX OINT 71GM TOP SCH (21:43)
[2024-01-13] MEDS: ZOLPIDEM TARTRATE 5MG TABLET PO PRN (02:06)
[2024-01-13 08:00] VITALS: BP 138/60; PULSE 64; RESP 17; TEMP 97.5
[2024-01-13] MEDS: GLIPIZIDE 5MG TABLET PO SCH (10:33)
[2024-01-13] MEDS: TRAMADOL 50MG TABLET PO PRN (17:33)
[2024-01-13 20:00] VITALS: BP 151/64; PULSE 67; RESP 18; TEMP 97.5
[2024-01-14] VITALS (11 sets, daily range): BP systolic 124–152; BP diastolic 61–67; PULSE 57–64; RESP 16–19; TEMP 97.7–99.1
[2024-01-14 06:25] LABS: BASOPHILS % 1.4 % (0.0-2.0); EOSINOPHILS % 3.2 % (0.0-5.0); HEMATOCRIT. 26.4 % (42.0-52.0); HEMOGLOBIN. 8.9 g/dL (14.0-18.0); LYMPHOCYTES % 15.3 % (20.0-50.0); MEAN CORPUSCULAR HEMOGLOBIN 32.6 pg (28.0-32.0); MEAN CORPUSCULAR HGB CONC 33.6 g/dL (31.0-37.0); MEAN CORPUSCULAR VOLUME 96.9 fL (80.0-94.0); MEAN PLATELET VOLUME 10.6 fl (7.4-10.4); MONOCYTES % 8.5 % (2.0-8.0); NEUTROPHILS % 71.6 % (40.0-76.0); PLATELET 277 x1000/uL (130-400); RED BLOOD CELL COUNT 2.73 mill/uL (4.7-6.1); RED CELL DISTRIBUTION WIDTH 19.9 % (11.6-14.6); WHITE BLOOD COUNT 8.9 x1000/uL (4.5-11.0)
[2024-01-14] MEDS ORDERED: NALOXONE HCL 0.4MG/ML VIAL IV PRN (13:45)
[2024-01-14 16:22] LABS: HEPATITIS B SURFACE ANTIGEN NEGATIVE (Negative)
[2024-01-14 16:42] LABS: HEPATITIS A AB IGM NEGATIVE (Negative)
[2024-01-14 16:43] LABS: HEPATITIS B CORE AB IGM REACTIVE (Negative)
[2024-01-14 16:44] LABS: HEPATITIS C AB NON REACTIVE (Neg) (Negative)
[2024-01-15] MEDS ORDERED: NALOXONE HCL 0.4MG/ML VIAL IV PRN (10:45)
[2024-01-15 11:28] VITALS: BP 131/62; PULSE 61; RESP 17; TEMP 97.2
[2024-01-15] MEDS: HYDROCODONE/ACETAMINOPHEN 5/325MG TABLET PO PRN (18:42)
[2024-01-15 20:00] VITALS: BP 153/60; PULSE 64; RESP 18; TEMP 97.7
[2024-01-15] MEDS: FINASTERIDE 5MG TABLET PO SCH (22:06)
[2024-01-15] MEDS: TAMSULOSIN HCL 0.4MG SR CAPSULE PO SCH (22:06)
[2024-01-16] MEDS: ZOLPIDEM TARTRATE 5MG TABLET PO NR (00:50)
[2024-01-16 14:45] VITALS: BP 145/71; PULSE 63; RESP 16; TEMP 97.1
[2024-01-16 15:15] VITALS: BP 143/71; PULSE 61
[2024-01-16 15:45] VITALS: BP 135/72; PULSE 63
[2024-01-16 16:15] VITALS: BP 143/70; PULSE 62
[2024-01-16 17:00] VITALS: BP 168/72; PULSE 65; RESP 16
[2024-01-16] MEDS: CEFEPIME 1GM/50ML 50 ML IV SCH (17:00)
[2024-01-16 18:10] LABS: BASOPHILS % 1.4 % (0.0-2.0); EOSINOPHILS % 3.3 % (0.0-5.0); HEMATOCRIT. 28.3 % (42.0-52.0); HEMOGLOBIN. 9.5 g/dL (14.0-18.0); LYMPHOCYTES % 11.2 % (20.0-50.0); MEAN CORPUSCULAR HEMOGLOBIN 32.3 pg (28.0-32.0); MEAN CORPUSCULAR HGB CONC 33.5 g/dL (31.0-37.0); MEAN CORPUSCULAR VOLUME 96.5 fL (80.0-94.0); MEAN PLATELET VOLUME 10.5 fl (7.4-10.4); MONOCYTES % 3.1 % (2.0-8.0); PLATELET 265 x1000/uL (130-400); RED BLOOD CELL COUNT 2.93 mill/uL (4.7-6.1); RED CELL DISTRIBUTION WIDTH 19.6 % (11.6-14.6); WHITE BLOOD COUNT 7.6 x1000/uL (4.5-11.0)
[2024-01-16 18:14] LABS: CHLORIDE 103 mEq/L (98-107); SODIUM 140 mEq/L (136-145)
[2024-01-16 18:15] LABS: CARBON DIOXIDE 31 mEq/L (21-32)
[2024-01-16 18:16] LABS: CALCIUM 8.6 mg/dL (8.7-10.4)
[2024-01-16 18:20] LABS: CREATININE 1.3 mg/dL (0.6-1.3); UREA NITROGEN BLOOD 5 mg/dL (9-23)
[2024-01-16 18:24] LABS: GLUCOSE 112 mg/dL (70-105)
[2024-01-16 18:25] LABS: T4 FREE 1.08 ng/dL (0.89-1.76)
[2024-01-16 20:00] VITALS: BP 164/56; PULSE 70; RESP 18; TEMP 97.6
[2024-01-16] MEDS ORDERED: IOHEXOL-350 100 ML BOTTLE ONE (22:48)
[2024-01-17 08:00] VITALS: BP 152/63; PULSE 63; RESP 17; TEMP 97.3
[2024-01-17] MEDS: CALCIUM ACETATE 667 MG TABLET PO SCH (12:32)
[2024-01-17 20:00] VITALS: BP 136/56; PULSE 57; RESP 18; TEMP 97.9
[2024-01-17] MEDS: ZOLPIDEM TARTRATE 5MG TABLET PO PRN (23:26)
[2024-01-18] VITALS (8 sets, daily range): BP systolic 129–161; BP diastolic 56–70; PULSE 61–66; RESP 17–20; TEMP 97.2–97.9
[2024-01-18 06:16] LABS: BASOPHILS % 1.9 % (0.0-2.0); EOSINOPHILS % 3.4 % (0.0-5.0); HEMATOCRIT. 27.3 % (42.0-52.0); LYMPHOCYTES % 19.9 % (20.0-50.0); MEAN CORPUSCULAR HGB CONC 32.9 g/dL (31.0-37.0); MEAN CORPUSCULAR VOLUME 97.3 fL (80.0-94.0); MEAN PLATELET VOLUME 10.3 fl (7.4-10.4); MONOCYTES % 8.5 % (2.0-8.0); NEUTROPHILS % 66.3 % (40.0-76.0); PLATELET 271 x1000/uL (130-400)
[2024-01-18 06:26] LABS: POTASSIUM 3.4 mEq/L (3.5-5.1)
[2024-01-18 06:27] LABS: CALCIUM 8.6 mg/dL (8.7-10.4)
[2024-01-18 06:41] LABS: CREATININE 5.7 mg/dL (0.6-1.3)
[2024-01-18] MEDS: ACETAMINOPHEN 325MG TABLET PO PRN (15:51)
[2024-01-18] MEDS: CLONIDINE 0.1MG TABLET PO PRN (16:06)
[2024-01-19 08:00] VITALS: BP 149/65; PULSE 68; RESP 19; TEMP 98.1
[2024-01-19 11:24] VITALS: RESP 19
[2024-01-19 11:40] VITALS: BP 149/65; PULSE 68; TEMP 98.1; O2SAT 99
== END 2024-01-19 12:30 | disposition home health service (06) | DRG 299 ==
PROVIDERS: ADMIT Physical Medicine & Rehabilitation Spinal Cord Injury Medicine; ATTEND Internal Medicine
PROC: 5A1D70Z Performance of Urinary Filtration, Intermittent, Less than 6 Hours Per Day (ICD-10-PCS; 2024-01-03)
PROC: 5A1D70Z Performance of Urinary Filtration, Intermittent, Less than 6 Hours Per Day (ICD-10-PCS; 2024-01-06)
PROC: 30233N1 Transfusion of Nonautologous Red Blood Cells into Peripheral Vein, Percutaneous Approach (ICD-10-PCS; principal; 2024-01-07)
PROC: 5A1D70Z Performance of Urinary Filtration, Intermittent, Less than 6 Hours Per Day (ICD-10-PCS; 2024-01-07)
PROC: 5A1D70Z Performance of Urinary Filtration, Intermittent, Less than 6 Hours Per Day (ICD-10-PCS; 2024-01-09)
PROC: 5A1D70Z Performance of Urinary Filtration, Intermittent, Less than 6 Hours Per Day (ICD-10-PCS; 2024-01-11)
PROC: 5A1D70Z Performance of Urinary Filtration, Intermittent, Less than 6 Hours Per Day (ICD-10-PCS; 2024-01-12)
PROC: 5A1D70Z Performance of Urinary Filtration, Intermittent, Less than 6 Hours Per Day (ICD-10-PCS; 2024-01-14)
PROC: 5A1D70Z Performance of Urinary Filtration, Intermittent, Less than 6 Hours Per Day (ICD-10-PCS; 2024-01-17)
PROC: 5A1D70Z Performance of Urinary Filtration, Intermittent, Less than 6 Hours Per Day (ICD-10-PCS; 2024-01-18)
DX: E11.52 Type 2 diabetes mellitus with diabetic peripheral angiopathy with gangrene (principal); G82.50 Quadriplegia, unspecified; G93.41 Metabolic encephalopathy; N18.6 End stage renal disease; E46 Unspecified protein-calorie malnutrition; I70.261 Atherosclerosis of native arteries of extremities with gangrene, right leg; I12.0 Hypertensive chronic kidney disease with stage 5 chronic kidney disease or end stage renal disease; N39.0 Urinary tract infection, site not specified; E11.649 Type 2 diabetes mellitus with hypoglycemia without coma; E78.5 Hyperlipidemia, unspecified; F32.9 Major depressive disorder, single episode, unspecified; E11.22 Type 2 diabetes mellitus with diabetic chronic kidney disease; E03.9 Hypothyroidism, unspecified; D63.1 Anemia in chronic kidney disease; F41.1 Generalized anxiety disorder; G54.6 Phantom limb syndrome with pain; I25.10 Atherosclerotic heart disease of native coronary artery without angina pectoris; B35.1 Tinea unguium; E11.621 Type 2 diabetes mellitus with foot ulcer; E11.65 Type 2 diabetes mellitus with hyperglycemia; E55.9 Vitamin D deficiency, unspecified; I82.403 Acute embolism and thrombosis of unspecified deep veins of lower extremity, bilateral; I82.419 Acute embolism and thrombosis of unspecified femoral vein; K59.00 Constipation, unspecified; L97.529 Non-pressure chronic ulcer of other part of left foot with unspecified severity; E61.1 Iron deficiency; N40.0 Benign prostatic hyperplasia without lower urinary tract symptoms; Z20.822 Contact with and (suspected) exposure to COVID-19; R00.1 Bradycardia, unspecified; M79.672 Pain in left foot; R06.02 Shortness of breath; R11.2 Nausea with vomiting, unspecified; R26.89 Other abnormalities of gait and mobility; R54 Age-related physical debility; Z79.899 Other long term (current) drug therapy; Z79.4 Long term (current) use of insulin; Z82.49 Family history of ischemic heart disease and other diseases of the circulatory system; Z79.84 Long term (current) use of oral hypoglycemic drugs; Z79.02 Long term (current) use of antithrombotics/antiplatelets; Z85.46 Personal history of malignant neoplasm of prostate; Z89.611 Acquired absence of right leg above knee; Z89.511 Acquired absence of right leg below knee; Z95.1 Presence of aortocoronary bypass graft; Z99.2 Dependence on renal dialysis; Z83.3 Family history of diabetes mellitus; Z95.5 Presence of coronary angioplasty implant and graft; Z91.81 History of falling; Z68.28 Body mass index [BMI] 28.0-28.9, adult
CPT/HCPCS: 36415; 71045; 72191; 73706; 74018; 78580; 80048; 80053; 80076; 81003; 82140; 82306; 82550; 82607; 82728; 82746; 82962; 83036; 83540; 83550; 84134; 84145; 84439; 84443; 85014; 85018; 85025; 86705; 86709; 86850; 86900; 86920; 87340; 87426; 90935; 92523; 92610; 97110; 97150; 97162; 97166; 97530; 97535; 97542; A4565; A6261; J0692; J0885; J1815; J2270; J3370; J7042; P9016; Q9967; A5200